=== PATIENT | male | born 1930 | race Caucasian/White ===

== ENCOUNTER 2016-06-15 08:15 | Inpatient (IN) | payer MEDICARE, BC ==
[2016-06-15] MEDS ORDERED: NS 0.9% 1000 ML* 1,000 ML IV ONE (08:20)
[2016-06-15 08:46] LABS: Hematocrit 22 % (42-52); Hemoglobin 6.7 g/dl (14.0-18.0); Mean Corpuscular HGB Conc 30 g/dl (31-36); Mean Corpuscular Hemoglobin 22 pg (27-31); Mean Corpuscular Volume 73 fL (80-94); Mean Platelet Volume 6 um3 (7.4-10.4); Red Blood Count 3.07 10^6/ul (4.0-5.4); Red Cell Distribution Width 18 % (10.5-15); White Blood Count 15.3 10^3/ul (3.5-10.8)
[2016-06-15 08:47] LABS: Add Diff/Slide Review? Slide Review Added; Comments Flag Yes
[2016-06-15 08:53] LABS: Albumin 2.6 g/dL (3.2-5.2); BUN/Creatinine Ratio 61.4 (8-20); EGFR African American 105.4 (>60); EGFR Non-African American 81.9 (>60); Globulin 2.7 g/dL (2-4); Potassium 4.3 mmol/L (3.5-5.0); Total Bilirubin 0.3 mg/dL (0.2-1.0); Total Protein 5.3 g/dL (6.4-8.9)
[2016-06-15] MEDS ORDERED: Pantoprazole IV* 40 MG IV ONE (09:12)
[2016-06-15] MEDS ORDERED: NS 0.9% 1000 ML* 1,000 ML IV SCH ×2 (09:15→10:54)
[2016-06-15 09:16] LABS: Basophilic Stippling 1+; Hypochromasia 2+; Immature Granulocytes 4 % (0-9); Metamyelocytes % 2 % (0-2); Microcytosis 2+; Neutrophil % 90 % (38-83); Polychromasia 1+
[2016-06-15 09:17] LABS: Target Cells 1+
--- NOTE | 2016-06-15 09:44 | ED ---
Hilary Leija Michael, scribed for Korina Minor MD on 06/15/16 at 0900 . GI/ HPI - HPI Summary HPI Summary: 85 y/o male was BIBA to the ED presenting with intermittent episodes of loose black tarry stool every hour for the last 24 hours. The pt reports that nothing aggravates or alleviates his symptoms. He denies abd pain. The PMHx is significant for GI bleeds and HTN. His last GI bleed was 1.5 years ago. The pt takes Ferrous Sulfate and ASA 81mg. - History of Current Complaint Chief Complaint: EDGIBleed Time Seen by Provider: 06/15/16 08:18 Stated Complaint: BLACK STOOL Hx Obtained From: Patient, EMS, Medical Records Onset/Duration: Started Days Ago, Still Present Timing: Intermittent Severity: Moderate Current Severity: Moderate Pain Intensity: 0 Associated Signs and Symptoms: Positive: Black Tarry Stool. Negative: Abdominal Pain Aggravating Factor(s): Nothing Alleviating Factor(s): Nothing - Additional Pertinent History Primary Care Physician: [id number] - Allergy/Home Medications Allergies/Adverse Reactions: Allergies Allergy/AdvReac Type Severity Reaction Status Date / Time No Known Allergies Allergy Verified 10/29/13 10:29 Home Medications: Home Medications Aspirin [Aspirin 81 MG TAB] 81 mg PO DAILY 06/15/16 [History Confirmed 06/15/16] Calcium Carbonate-Vitamin D [Calcium 500 + D 500-125 mg-Unit] 500 mg PO DAILY [History Confirmed 06/15/16] Chlorthalidone TAB* [Hygroton TAB*] 50 mg PO DAILY 06/15/16 [History Confirmed 06/15/16] Ferrous Sulfate TAB* 325 mg PO DAILY 06/15/16 [History Confirmed 06/15/16] PMH/Surg Hx/FS Hx/Imm Hx Endocrine/Hematology History: Denies: Hx Diabetes, Hx Thyroid Disease Cardiovascular History: Reports: Hx Hypercholesterolemia, Hx Hypertension Denies: Hx Congestive Heart Failure GI History: Reports: Other GI Disorders - asa induced ulcer approx 30 yrs ago History: Reports: Other Problems/Disorders - Prostate cancer Musculoskeletal History: Reports: Other Musculoskeletal History - osteo arthritis, 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 Sensory History: Reports: Hx Contacts or Glasses Opthamlomology History: Reports: Hx Contacts or Glasses - Cancer History Cancer Type, Location and Year: prostate'96 Hx Chemotherapy: Yes - Surgical History Surgery Procedure, Year, and Place: prostatectomy, Hx Anesthesia Reactions: No Infectious Disease History: No Infectious Disease History: Denies: Traveled Outside the [place] in Last 30 Days - Family History Known Family History: Negative: Blood Disorder - Social History Occupation: Retired Lives: With Family Alcohol Use: None Substance Use Type: Reports: None Smoking Status (MU): Never Smoked Tobacco Review of Systems Negative: Fever Positive: Other - black tarry stool. Negative: Abdominal Pain All Other Systems Reviewed And Are Negative: Yes Physical Exam Triage Information Reviewed: Yes Vital Signs On Initial Exam: Initial Vitals Temp Pulse Resp BP Pulse Ox 97.4 F 88 16 100/45 100 06/15/16 08:17 06/15/16 08:17 06/15/16 08:17 06/15/16 08:17 06/15/16 08:17 Vital Signs Reviewed: Yes Appearance: Positive: Well-Appearing, No Pain Distress Skin: Positive: Warm, Dry, Pale Eyes: Positive: EOMI, SARWAT ENT: Positive: Pharynx normal, TMs normal Neck: Positive: Supple, Nontender Respiratory/Lung Sounds: Positive: Clear to Auscultation, Breath Sounds Present. Negative: Rales, Rhonchi, Wheezes Cardiovascular: Positive: RRR, Other - no gallops. Negative: Murmur, Rub Abdomen Description: Positive: Nontender - no abd pain, Soft, Other: - no rebound. Negative: Guarding Bowel Sounds: Positive: Present Musculoskeletal: Positive: Strength/ROM Intact. Negative: Edema Left, Edema Right Neurological: Positive: Sensory/Motor Intact, Alert, Oriented to Person Place, Time, CN Intact II-III Psychiatric: Positive: Affect/Mood Appropriate - Kia Coma Scale Coma Scale Total: 15 Diagnostics - Vital Signs Vital Signs Temp Pulse Resp BP Pulse Ox 06/15/16 08: 97.4 F 88 16 100/45 100 - Laboratory Lab Results: Lab Results 06/15/16 06/15/16 06/15/16 Range/Units 08:32 08:32 08:32 WBC 15.3 H (3.5-10.8) 10^3/ul RBC 3.07 L (4.0-5.4) 10^6/ul Hgb 6.7 L (14.0-18.0) g/dl Hct 22 L (42-52) % MCV 73 L (80-94) fL MCH 22 L (27-31) pg MCHC 30 L (31-36) g/dl RDW 18 H (10.5-15) % Plt Count 592 H (150-450) 10^3/ul MPV 6 L (7.4-10.4) um3 Immature Gran % (Auto) 4 (0-9) % Neut % (Auto) 86.0 H (38-83) % Lymph % (Auto) 5.5 L (25-47) % [place] % (Auto) 6.8 (1-9) % Eos % (Auto) 0.7 (0-6) % Baso % (Auto) 1.0 (0-2) % Absolute Neuts (auto) 13.1 H (1.5-7.7) 10^3/ul Absolute Lymphs (auto) 0.8 L (1.0-4.8) 10^3/ul Absolute Monos (auto) 1.0 H (0-0.8) 10^3/ul Absolute Eos (auto) 0.1 (0-0.6) 10^3/ul Absolute Basos (auto) 0.2 (0-0.2) 10^3/ul Absolute Nucleated RBC 0.01 10^3/ul Neutrophils % 90 H (38-83) % Band Neutrophils % 2 (0-8) % Lymphocytes % 5 L (25-47) % Monocytes % 1 (0-13) % Metamyelocytes % 2 (0-2) % Nucleated RBC % 0 Normal RBC Morphology Not Reportable Polychromasia 1+ Hypochromasia 2+ Basophilic Stippling 1+ Microcytosis 2+ Target Cells 1+ Elliptocytes 1+ INR (Anticoag Therapy) 1.16 H (0.89-1.11) APTT 27.0 (26.0-36.3) seconds Sodium 136 (133-145) mmol/L Potassium 4.3 (3.5-5.0) mmol/L Chloride 106 (101-111) mmol/L Carbon Dioxide 21 L (22-32) mmol/L Anion Gap 9 (2-11) mmol/L BUN 54 H (6-24) mg/dL Creatinine 0.88 (0.67-1.17) mg/dL Est GFR ( Amer) 105.4 (>60) Est GFR (Non-Af Amer) 81.9 (>60) BUN/Creatinine Ratio 61.4 H (8-20) Glucose 159 H (70-100) mg/dL Calcium 8.0 L (8.6-10.3) mg/dL Total Bilirubin 0.30 (0.2-1.0) mg/dL AST 27 (13-39) U/L ALT 6 L (7-52) U/L Alkaline Phosphatase 306 H (34-104) U/L Total Protein 5.3 L (6.4-8.9) g/dL Albumin 2.6 L (3.2-5.2) g/dL Globulin 2.7 (2-4) g/dL Albumin/Globulin Ratio 1.0 (1-3) Blood Type Antibody Screen Crossmatch 06/15/16 Range/Units 08:32 WBC (3.5-10.8) 10^3/ul RBC (4.0-5.4) 10^6/ul Hgb (14.0-18.0) g/dl Hct (42-52) % MCV (80-94) fL MCH (27-31) pg MCHC (31-36) g/dl RDW (10.5-15) % Plt Count (150-450) 10^3/ul MPV (7.4-10.4) um3 Immature Gran % (Auto) (0-9) % Neut % (Auto) (38-83) % Lymph % (Auto) (25-47) % Blair % (Auto) (1-9) % Eos % (Auto) (0-6) % Baso % (Auto) (0-2) % Absolute Neuts (auto) (1.5-7.7) 10^3/ul Absolute Lymphs (auto) (1.0-4.8) 10^3/ul Absolute Monos (auto) (0-0.8) 10^3/ul Absolute Eos (auto) (0-0.6) 10^3/ul Absolute Basos (auto) (0-0.2) 10^3/ul Absolute Nucleated RBC 10^3/ul Neutrophils % (38-83) % Band Neutrophils % (0-8) % Lymphocytes % (25-47) % Monocytes % (0-13) % Metamyelocytes % (0-2) % Nucleated RBC % Normal RBC Morphology Polychromasia Hypochromasia Basophilic Stippling Microcytosis Target Cells Elliptocytes INR (Anticoag Therapy) (0.89-1.11) APTT (26.0-36.3) seconds Sodium (133-145) mmol/L Potassium (3.5-5.0) mmol/L Chloride (101-111) mmol/L Carbon Dioxide (22-32) mmol/L Anion Gap (2-11) mmol/L BUN (6-24) mg/dL Creatinine (0.67-1.17) mg/dL Est GFR ( Amer) (>60) Est GFR (Non-Af Amer) (>60) BUN/Creatinine Ratio (8-20) Glucose (70-100) mg/dL Calcium (8.6-10.3) mg/dL Total Bilirubin (0.2-1.0) mg/dL AST (13-39) U/L ALT (7-52) U/L Alkaline Phosphatase (34-104) U/L Total Protein (6.4-8.9) g/dL Albumin (3.2-5.2) g/dL Globulin (2-4) g/dL Albumin/Globulin Ratio (1-3) Blood Type B Positive Antibody Screen Negative Crossmatch See Detail Result Diagrams: 06/15/16 08:32 06/15/16 08:32 Lab Statement: Any lab studies that have been ordered have been reviewed, and results considered in the medical decision making process. GIGU Course/Dx - Course Course Of Treatment: Consulted Dr. Panda (Hospitalist) at 0910-pt will be admitted to [facility] Consulted Dr. Ortega (GI) at 0915-discussed treatment plan with transfusion and protonix. - Diagnoses Provider Diagnoses: Upper GI bleed Discharge - Discharge Plan Condition: Stable Disposition: ADMITTED TO [facility] Discharge Disposition Comment: pt is accepted by Dr. Panda Referrals: Parker Baxter MD [Primary Care Provider] - The documentation as recorded by the Hilary dewitt Michael accurately reflects the service I personally performed and the decisions made by me, Korina Minor MD.
[2016-06-15] MEDS ORDERED: Pantoprazole IV* 80 MG in NS 0.9% 250 ML* 250 ML IVPB SCH (10:00)
[2016-06-15] MEDS ORDERED: Midazolam* 1 MG/ML 10 ML VIAL (10 MG) ONE ×2 (10:51→10:52)
[2016-06-15] MEDS ORDERED: fentaNYL* 50 MCG/ML 2 ML VIAL (100 MCG VIAL) ONE (10:52)
[2016-06-15] MEDS ORDERED: Ondansetron INJ* 2 MG/ML VIAL IV PRN (10:52)
--- NOTE | 2016-06-15 12:21 | HP ---
HISTORY AND PHYSICAL: DATE OF ADMISSION: 06/15/16 PRIMARY CARE PROVIDER: Dr. Baxter. ATTENDING PHYSICIAN WHILE IN THE HOSPITAL: Breonna Godwin MD * (report dictated by Hesham Watts NP). CHIEF COMPLAINT: Tarry stools. HISTORY OF PRESENT ILLNESS: Mr. San is an 85-year-old male patient. He carries a history of hypertension, history of GI bleed x2 in the past related to aspirin and prednisone, history of prostate cancer, hyperlipidemia and peptic ulcer disease. He comes into the ER today stating that over the last 6 weeks he has been taking NSAIDs about 2 times a day on a daily basis and he noticed he takes iron as well and he normally has dark stools but what changed last night is he was having dark tarry stools about every hour which was new for him and he was feeling weak and tired. He knew that these might be the signs of a GI bleed and he came into the hospital. He denied having any chest pain or shortness of breath. Denied having any syncopal episodes. He denies any recent fevers or chills and he denies having any abdominal discomfort. He says that his noted that he was becoming more pale and he noticed that he was just feeling much more weak. He came into the ER and it was noted that his hemoglobin was 6.7. He is actually surprisingly heme negative, but because of his history and the story, we were asked to evaluate for admission for obvious GI bleed and the patient was evaluated and is being admitted to the ICU for endoscopy. PAST MEDICAL HISTORY: Significant for: 1. Hypertension. 2. Hyperlipidemia. 3. Prostate cancer. 4. GI bleed x2. 5. Peptic ulcer disease. PAST SURGICAL HISTORY: He denied family history, was reviewed and essentially noncontributory. He said that there is no history of GI disease in the family. HOME MEDICATIONS: According to the list that was provided include: 1. Calcium with vitamin D 500 mg daily. 2. Ferrous sulfate 325 mg p.o. daily. 3. Chlorthalidone 50 mg daily. 4. Aspirin 81 mg daily. 5. Advil 240 mg every 6 hours as needed b.i.d. ALLERGIES TO MEDICATIONS: No known drug allergies. SOCIAL HISTORY: He does not smoke. He does not drink. He lives with his . Surrogate decision maker is his son, Eb. REVIEW OF SYSTEMS: There is no documented fever. He denied having any significant weight change. There was no double vision. He denies having any ear discharge. There is no rhinorrhea. There is no sore throat. No thyroid enlargement. Denies having any chest pain. There is no orthopnea. There is no nocturnal dyspnea. There is no abdominal pain. There is no nausea, no vomiting. No dysuria, no frequency. No seizure, no loss of consciousness. No pruritus and no skin ulcerations. Review of 14 systems completed and all others negative. PHYSICAL EXAMINATION GENERAL: At this time, Mr. San is an 85-year-old male patient. He is sitting in the ICU bed. He does not appear to be in any acute distress. VITAL SIGNS: Blood pressure initially 95/44, pulse 89, respirations 16, O2 sat 93%, temperature 97.7. HEENT: Head: Atraumatic, normocephalic. Eyes: EOMs intact. Sclerae anicteric. His sclerae does appear to be pale. Throat: Oral mucosa appears to be moist. No oropharyngeal erythema. NECK: Supple. LUNGS: Clear to auscultation bilaterally. No wheezes, rales or rhonchi. HEART: Sounds S1, S2. Regular rate and rhythm. No murmurs, rubs or gallops. ABDOMEN: Soft, flat, nontender. Bowel sounds present. EXTREMITIES: Pulses 2+ throughout. He is able to move all 4 extremities with 5 /5 strength. NEUROLOGIC: The patient is awake, alert, oriented x3. Tongue midline. Budget Director were equal. No gross focal deficits. SKIN: Intact. DIAGNOSTIC STUDIES/LABORATORY DATA: Today revealed WBC of 15.3, RBC of 3.07, hemoglobin 6.7, hematocrit of 22, his platelets were 592. His INR 1.16, PTT 27. Sodium 136, potassium 4.3, chloride of 106, bicarb 21, BUN 54, creatinine of 0.88, glucose of 159, calcium 8.0, total bilirubin 0.3, AST 27, ALT 6, albumin of 2.6. He did have a Hemoccult test obtained which was negative. Old medical records were reviewed. ASSESSMENT AND PLAN: Mr. San is an 85-year-old male patient coming into the ER today with complaints of tarry stools overnight and weakness, on evaluation was found to have a significant drop in his H and H. Hospitalist service was asked to evaluate for admission. He will be admitted under inpatient status for : 1. Presumed upper gastrointestinal bleed. At this point, his BUN is up. I know the Hemoccult was negative but certainly with his history one must consider peptic ulcer disease again and a bleeding ulcer. The plan at this point is to give him 2 units of blood, nothing by mouth. Dr. Diallo has been consulted and will be evaluating the patient today for an upper endoscopy. He is hypotensive in the 90s but he says he is feeling better and he is currently asymptomatic. He says he does not feel as weak anymore. I think we will continue with fluids and 2 units of blood. We will check his H and H an hour after the blood and transfuse as needed and continue the PPI drip and stop the offending agents. 2. Hypertension. We will hold the chlorthalidone in the acute illness. 3. Hyperlipidemia. He can follow with Dr. Baxter. He says he does not take any medications for this currently. 4. Prostate cancer. Follow with primary. 5. Peptic ulcer disease. Most likely he is going to be admitted on a PPI. 6. Leukocytosis. Etiology unclear. He has not had any infectious type symptoms. At this point, I will just trend this. It is probably a stress reaction to the gastrointestinal bleed. I will send off cultures. If there is any fevers or obvious source of infection, we will treat. 7. DVT prophylaxis. He will be placed on SCDs only because of the active bleed. 8. Code status. He wishes to be do not resuscitate. 9. Fluids, electrolytes, nutrition. He is n.p.o. Hopefully, after the scope we can start him on clears but I will wait for recommendations from Dr. Diallo. TIME SPENT: On the admission 60 minutes, greater than half the time spent face- to- face with the patient, obtaining my history and physical; the other half of the time spent going over the plan of care with the patient and implementing plan of care. I did discuss the plan of care with my attending, Dr. Godwin; she is in agreement. HESHAM WATTS NP CC: Dr. Baxter; Dr. Diallo * [id number]/[facility] #: [id number] [facility]
--- NOTE | 2016-06-15 13:03 | PRO ---
DATE OF PROCEDURE: 06/15/16 - ROOM #452 PROCEDURE: Gastroscopy with CLOtest biopsy from the gastric antrum. MEDICINES: Versed 3 mg IV, Fentanyl 25 mcg IV. 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 He has been taking NSAIDs pretty regularly for the last several weeks. He had noticed black frequent stools overnight and presented with anemia. He was hemodynamically stable. He does have a prior history of bleeding and was actually admitted to the hospital about 2 years ago with a duodenal ulcer bleed, presumably from prednisone therapy. Semi-urgent upper endoscopy is therefore being carried out. PROCEDURE IN DETAIL: After the procedure was discussed with the patient, risks and benefits were outlined, written consent was obtained, the patient was placed in the left lateral decubitus position and conscious sedation was administered. A video diagnostic gastroscope was inserted orally and passed very carefully into the esophagus. The esophagus, stomach, and duodenum through the second to third portion were well visualized. The patient tolerated the procedure well and there were no immediate complications. FINDINGS: The esophagus was normal. There was no evidence of erosive change. The stomach was entered. There was no blood in the stomach. The cardia, fundus , body and antrum of the stomach were unremarkable without any ulceration or inflammatory change. The pylorus was normal and patent. However, entering the duodenal bulb, an approximately 1 cm duodenal bulb ulcer was seen. It had a white base, was not actively bleeding, had a small hemostatic red spot in the center, but no protruding vessel. The second to third portion of the duodenum was normal with a normal folding pattern. The gastroscope was then brought back out into the stomach and a gastric antral biopsy for CLOtest was obtained. CONCLUSION: Duodenal ulcer as described above. No evidence of active bleeding or visible vessel. RECOMMENDATIONS: The patient should remain on PPI therapy. He will start a clear liquid diet. The lesion itself has a relatively low risk of re-bleeding. He is instructed to avoid NSAIDS in the future. CC: Parker Baxter MD * [id number]/[facility] #: [id number] [facility]
[2016-06-15 14:12] LABS: Hematocrit 24 % (42-52); Hemoglobin 7.3 g/dl (14.0-18.0)
[2016-06-15 14:13] LABS: Comments Flag Yes
[2016-06-15] MEDS: Pantoprazole IV* 80 MG in NS 0.9% 250 ML* 250 ML IVPB SCH ×2 (14:13→21:45)
[2016-06-15 14:43] LABS: Urine Bilirubin Negative (Negative); Urine Glucose Negative (Negative); Urine Nitrite Negative (Negative)
[2016-06-15] MEDS: Acetaminophen TAB* 325 MG PO PRN (19:29)
[2016-06-15 20:36] LABS: Hematocrit 24 % (42-52); Hemoglobin 7.7 g/dl (14.0-18.0)
[2016-06-16] MEDS: Acetaminophen TAB* 325 MG PO PRN ×4 (01:44→20:38)
[2016-06-16 03:24] LABS: Hematocrit 21 % (42-52)
[2016-06-16 03:25] LABS: Comments Flag Yes
[2016-06-16 03:26] LABS: Hemoglobin 6.6 g/dl (14.0-18.0)
[2016-06-16 04:49] LABS: Hematocrit 22 % (42-52); Hemoglobin 7.1 g/dl (14.0-18.0)
[2016-06-16 06:48] LABS: Hematocrit 23 % (42-52); Hemoglobin 7.1 g/dl (14.0-18.0); Mean Corpuscular HGB Conc 32 g/dl (31-36); Mean Corpuscular Hemoglobin 24 pg (27-31); Mean Corpuscular Volume 76 fL (80-94); Mean Platelet Volume 6 um3 (7.4-10.4); Red Blood Count 2.98 10^6/ul (4.0-5.4); Red Cell Distribution Width 19 % (10.5-15); White Blood Count 14.6 10^3/ul (3.5-10.8)
[2016-06-16 07:02] LABS: BUN/Creatinine Ratio 50.6 (8-20); Calcium 7.4 mg/dL (8.6-10.3); EGFR African American 115.9 (>60); EGFR Non-African American 90.1 (>60); Potassium 3.7 mmol/L (3.5-5.0)
[2016-06-16] MEDS: Pantoprazole IV* 80 MG in NS 0.9% 250 ML* 250 ML IVPB SCH ×2 (08:03→17:56)
[2016-06-16 12:28] LABS: Hematocrit 22 % (42-52); Hemoglobin 7.1 g/dl (14.0-18.0)
--- NOTE | 2016-06-16 16:41 | PN ---
Subjective Date of Service: 06/16/16 Interval History: Seen and examined No additional BMs since admission Tolerating clear liquids well No pain No LH, SOB, CP, N/V Objective Active Medications: Acetaminophen (Tylenol Tab*) 650 mg PO Q4H PRN PRN Reason: FEVER/PAIN Last Admin: 06/16/16 16:30 Dose: 650 mg Pantoprazole Sodium 80 mg/ (Sodium Chloride) 250 mls @ 25 mls/hr IVPB Q10H [facility] Last Admin: 06/16/16 08:03 Dose: 25 mls/hr Sodium Chloride (Ns 0.9% 1000 Ml*) 1,000 mls @ 100 mls/hr IV PER RATE [facility] Last Admin: 06/15/16 16:43 Dose: 100 mls/hr Ondansetron HCl (Zofran Inj*) 4 mg IV Q6H PRN PRN Reason: NAUSEA Vital Signs 06/15/16 06/15/16 06/16/16 19:56 20:00 00:32 Temperature 99.8 F 98.9 F Pulse Rate 91 78 Respiratory 18 18 20 Rate Blood Pressure 102/45 94/37 (mmHg) O2 Sat by Pulse 99 97 Oximetry 06/16/16 06/16/16 06/16/16 04:08 07:10 07:40 Temperature 98.6 F Pulse Rate 78 Respiratory 16 20 Rate Blood Pressure 97/47 (mmHg) O2 Sat by Pulse 97 99 98 Oximetry 06/16/16 06/16/16 06/16/16 08:02 11:39 12:03 Temperature 99.0 F 98.4 F Pulse Rate 78 71 Respiratory 20 20 Rate Blood Pressure 96/43 97/40 (mmHg) O2 Sat by Pulse 99 99 98 Oximetry 06/16/16 06/16/16 16:07 16:26 Temperature 100.4 F 100.6 F Pulse Rate 83 Respiratory 16 Rate Blood Pressure 108/45 (mmHg) O2 Sat by Pulse 99 Oximetry Oxygen Devices in Use Now: None Appearance: NAD Eyes: No Scleral Icterus, PERRLA Ears/Nose/Mouth/Throat: NL Teeth, Lips, Gums, Mucous Membranes Moist Neck: NL Appearance and Movements; NL JVP, Trachea Midline Respiratory: Symmetrical Chest Expansion and Respiratory Effort, Clear to Auscultation Cardiovascular: RRR Abdominal: NL Sounds; No Tenderness; No Distention, No Hepatosplenomegaly Lymphatic: No Cervical Adenopathy Extremities: No Edema Skin: No Rash or Ulcers Neurological: Alert and Oriented x 3 Result Diagrams: 06/16/16 12:15 06/16/16 06:42 Additional Lab and Data: Lab Results 06/15/16 06/15/16 06/15/16 Range/Units 08:32 08:32 08:32 WBC 15.3 H (3.5-10.8) 10^3/ul RBC 3.07 L (4.0-5.4) 10^6/ul Hgb 6.7 L (14.0-18.0) g/dl Hct 22 L (42-52) % MCV 73 L (80-94) fL MCH 22 L (27-31) pg MCHC 30 L (31-36) g/dl RDW 18 H (10.5-15) % Plt Count 592 H (150-450) 10^3/ul MPV 6 L (7.4-10.4) um3 Immature Gran % (Auto) 4 (0-9) % Neut % (Auto) 86.0 H (38-83) % Lymph % (Auto) 5.5 L (25-47) % [place] % (Auto) 6.8 (1-9) % Eos % (Auto) 0.7 (0-6) % Baso % (Auto) 1.0 (0-2) % Absolute Neuts (auto) 13.1 H (1.5-7.7) 10^3/ul Absolute Lymphs (auto) 0.8 L (1.0-4.8) 10^3/ul Absolute Monos (auto) 1.0 H (0-0.8) 10^3/ul Absolute Eos (auto) 0.1 (0-0.6) 10^3/ul Absolute Basos (auto) 0.2 (0-0.2) 10^3/ul Absolute Nucleated RBC 0.01 10^3/ul Neutrophils % 90 H (38-83) % Band Neutrophils % 2 (0-8) % Lymphocytes % 5 L (25-47) % Monocytes % 1 (0-13) % Metamyelocytes % 2 (0-2) % Nucleated RBC % 0 Normal RBC Morphology Not Reportable Polychromasia 1+ Hypochromasia 2+ Basophilic Stippling 1+ Microcytosis 2+ Target Cells 1+ Elliptocytes 1+ INR (Anticoag Therapy) 1.16 H (0.89-1.11) APTT 27.0 (26.0-36.3) seconds Sodium 136 (133-145) mmol/L Potassium 4.3 (3.5-5.0) mmol/L Chloride 106 (101-111) mmol/L Carbon Dioxide 21 L (22-32) mmol/L Anion Gap 9 (2-11) mmol/L BUN 54 H (6-24) mg/dL Creatinine 0.88 (0.67-1.17) mg/dL Est GFR ( Amer) 105.4 (>60) Est GFR (Non-Af Amer) 81.9 (>60) BUN/Creatinine Ratio 61.4 H (8-20) Glucose 159 H (70-100) mg/dL Calcium 8.0 L (8.6-10.3) mg/dL Total Bilirubin 0.30 (0.2-1.0) mg/dL AST 27 (13-39) U/L ALT 6 L (7-52) U/L Alkaline Phosphatase 306 H (34-104) U/L Total Protein 5.3 L (6.4-8.9) g/dL Albumin 2.6 L (3.2-5.2) g/dL Globulin 2.7 (2-4) g/dL Albumin/Globulin Ratio 1.0 (1-3) Blood Type Antibody Screen Crossmatch 06/15/16 Range/Units 08:32 WBC (3.5-10.8) 10^3/ul RBC (4.0-5.4) 10^6/ul Hgb (14.0-18.0) g/dl Hct (42-52) % MCV (80-94) fL MCH (27-31) pg MCHC (31-36) g/dl RDW (10.5-15) % Plt Count (150-450) 10^3/ul MPV (7.4-10.4) um3 Immature Gran % (Auto) (0-9) % Neut % (Auto) (38-83) % Lymph % (Auto) (25-47) % [place] % (Auto) (1-9) % Eos % (Auto) (0-6) % Baso % (Auto) (0-2) % Absolute Neuts (auto) (1.5-7.7) 10^3/ul Absolute Lymphs (auto) (1.0-4.8) 10^3/ul Absolute Monos (auto) (0-0.8) 10^3/ul Absolute Eos (auto) (0-0.6) 10^3/ul Absolute Basos (auto) (0-0.2) 10^3/ul Absolute Nucleated RBC 10^3/ul Neutrophils % (38-83) % Band Neutrophils % (0-8) % Lymphocytes % (25-47) % Monocytes % (0-13) % Metamyelocytes % (0-2) % Nucleated RBC % Normal RBC Morphology Polychromasia Hypochromasia Basophilic Stippling Microcytosis Target Cells Elliptocytes INR (Anticoag Therapy) (0.89-1.11) APTT (26.0-36.3) seconds Sodium (133-145) mmol/L Potassium (3.5-5.0) mmol/L Chloride (101-111) mmol/L Carbon Dioxide (22-32) mmol/L Anion Gap (2-11) mmol/L BUN (6-24) mg/dL Creatinine (0.67-1.17) mg/dL Est GFR ( Amer) (>60) Est GFR (Non-Af Amer) (>60) BUN/Creatinine Ratio (8-20) Glucose (70-100) mg/dL Calcium (8.6-10.3) mg/dL Total Bilirubin (0.2-1.0) mg/dL AST (13-39) U/L ALT (7-52) U/L Alkaline Phosphatase (34-104) U/L Total Protein (6.4-8.9) g/dL Albumin (3.2-5.2) g/dL Globulin (2-4) g/dL Albumin/Globulin Ratio (1-3) Blood Type B Positive Antibody Screen Negative Crossmatch See Detail Microbiology and Other Data: Microbiology 06/15/16 14:25 Aerobic Blood Culture - Preliminary Blood Venous No Growth Day 1 Anaerobic Blood Culture - Preliminary No Growth Day 1 06/15/16 14:05 Aerobic Blood Culture - Preliminary Blood Venous No Growth Day 1 Anaerobic Blood Culture - Preliminary No Growth Day 1 06/15/16 14:35 Urine Culture - Final Urine No Growth (<1,000 CFU/mL) 06/15/16 11:27 CLOtest - Final Gastric Antrum Assess/Plan/Problems-Billing Assessment: 85 yo M p/w GO hemorrhage from duodenal ulcer in setting of NSAID use - Patient Problems (1) Acute blood loss anemia Comment: Transfuse for H/H <7 Repeat H/H 2200 (2) Duodenal ulcer Comment: IV PPI recurrent - also seen 2015 discharge on oral developed in setting of NSAID use (3) HTN (hypertension) Comment: Holding chlorthalidone (4) DVT prophylaxis Comment: SCDs in setting of GIB
[2016-06-16] MEDS: Ferrous Sulfate TAB* 325 MG PO SCH (20:38)
[2016-06-16 23:01] LABS: Hematocrit 21 % (42-52)
[2016-06-16 23:02] LABS: Comments Flag Yes; Hemoglobin 6.6 g/dl (14.0-18.0)
[2016-06-17] MEDS ORDERED: traMADol TAB* 50 MG PO PRN (03:15)
[2016-06-17] MEDS: Acetaminophen TAB* 325 MG PO PRN ×2 (07:31→23:16)
[2016-06-17] MEDS: Ferrous Sulfate TAB* 325 MG PO SCH ×3 (07:31→21:06)
[2016-06-17] MEDS: Pantoprazole IV* 80 MG in NS 0.9% 250 ML* 250 ML IVPB SCH ×4 (07:46→21:06)
[2016-06-17 10:04] LABS: Hematocrit 24 % (42-52); Hemoglobin 7.8 g/dl (14.0-18.0); Mean Corpuscular HGB Conc 32 g/dl (31-36); Mean Corpuscular Hemoglobin 25 pg (27-31); Mean Corpuscular Volume 77 fL (80-94); Mean Platelet Volume 7 um3 (7.4-10.4); Red Blood Count 3.16 10^6/ul (4.0-5.4); Red Cell Distribution Width 20 % (10.5-15); White Blood Count 14.9 10^3/ul (3.5-10.8)
--- NOTE | 2016-06-17 19:22 | PN ---
Subjective Date of Service: 06/17/16 Interval History: Pt has no complaints, no recent BM's Objective Active Medications: Acetaminophen (Tylenol Tab*) 650 mg PO Q4H PRN PRN Reason: FEVER/PAIN Last Admin: 06/17/16 07:31 Dose: 650 mg Ferrous Sulfate (Ferrous Sulfate Tab*) 325 mg PO TID [facility] Last Admin: 06/17/16 14:09 Dose: 325 mg Pantoprazole Sodium 80 mg/ (Sodium Chloride) 250 mls @ 25 mls/hr IVPB Q10H [facility] Last Admin: 06/17/16 08:36 Dose: 25 mls/hr Ondansetron HCl (Zofran Inj*) 4 mg IV Q6H PRN PRN Reason: NAUSEA Tramadol HCl (Ultram*) 50 mg PO Q12H PRN PRN Reason: PAIN Last Admin: 06/17/16 04:57 Dose: 50 mg Vital Signs 06/16/16 06/16/16 06/16/16 19:45 20:00 22:00 Temperature 99.3 F 98.3 F Pulse Rate 83 78 Respiratory 16 16 22 Rate Blood Pressure 105/49 88/41 (mmHg) O2 Sat by Pulse 96 100 Oximetry 06/16/16 06/17/16 06/17/16 23:55 00:30 01:00 Temperature 97.7 F 97.9 F 97.4 F Pulse Rate 76 79 Respiratory 16 24 24 Rate Blood Pressure 92/39 81/29 95/31 (mmHg) O2 Sat by Pulse 96 97 Oximetry 06/17/16 06/17/16 06/17/16 04:43 04:57 06:57 Temperature 97.9 F Pulse Rate 81 Respiratory 26 20 14 Rate Blood Pressure 101/42 (mmHg) O2 Sat by Pulse 95 Oximetry 06/17/16 06/17/16 06/17/16 07:17 08:00 08:16 Temperature 100.5 F 100.1 F Pulse Rate 82 Respiratory 18 22 Rate Blood Pressure 95/45 (mmHg) O2 Sat by Pulse 95 Oximetry 06/17/16 06/17/16 06/17/16 09:56 10:33 11:13 Temperature 97.8 F 98.3 F Pulse Rate 75 Respiratory 18 Rate Blood Pressure 97/45 (mmHg) O2 Sat by Pulse 97 99 Oximetry 06/17/16 06/17/16 06/17/16 11:41 12:15 15:47 Temperature 98.3 F Pulse Rate 77 85 88 Respiratory 24 16 Rate Blood Pressure 78/42 125/24 110/44 (mmHg) O2 Sat by Pulse 100 100 Oximetry 06/17/16 06/17/16 16:26 17:40 Temperature 100.0 F Pulse Rate 86 Respiratory 23 Rate Blood Pressure 110/51 (mmHg) O2 Sat by Pulse 99 97 Oximetry Oxygen Devices in Use Now: None Appearance: 85 yo M in nAd, aAOx3 Eyes: No Scleral Icterus, PERRLA Ears/Nose/Mouth/Throat: NL Teeth, Lips, Gums, Mucous Membranes Moist Neck: NL Appearance and Movements; NL JVP, Trachea Midline Respiratory: Symmetrical Chest Expansion and Respiratory Effort, Clear to Auscultation Cardiovascular: NL Sounds; No Murmurs; No JVD, RRR Abdominal: NL Sounds; No Tenderness; No Distention Lymphatic: No Cervical Adenopathy Extremities: No Edema, No Clubbing, Cyanosis Skin: No Rash or Ulcers, No Nodules or Sclerosis Neurological: Alert and Oriented x 3, NL Muscle Strength and Tone Result Diagrams: 06/17/16 09:43 06/16/16 06:42 Additional Lab and Data: Lab Results 06/15/16 06/15/16 06/15/16 Range/Units 08:32 08:32 08:32 WBC 15.3 H (3.5-10.8) 10^3/ul RBC 3.07 L (4.0-5.4) 10^6/ul Hgb 6.7 L (14.0-18.0) g/dl Hct 22 L (42-52) % MCV 73 L (80-94) fL MCH 22 L (27-31) pg MCHC 30 L (31-36) g/dl RDW 18 H (10.5-15) % Plt Count 592 H (150-450) 10^3/ul MPV 6 L (7.4-10.4) um3 Immature Gran % (Auto) 4 (0-9) % Neut % (Auto) 86.0 H (38-83) % Lymph % (Auto) 5.5 L (25-47) % [place] % (Auto) 6.8 (1-9) % Eos % (Auto) 0.7 (0-6) % Baso % (Auto) 1.0 (0-2) % Absolute Neuts (auto) 13.1 H (1.5-7.7) 10^3/ul Absolute Lymphs (auto) 0.8 L (1.0-4.8) 10^3/ul Absolute Monos (auto) 1.0 H (0-0.8) 10^3/ul Absolute Eos (auto) 0.1 (0-0.6) 10^3/ul Absolute Basos (auto) 0.2 (0-0.2) 10^3/ul Absolute Nucleated RBC 0.01 10^3/ul Neutrophils % 90 H (38-83) % Band Neutrophils % 2 (0-8) % Lymphocytes % 5 L (25-47) % Monocytes % 1 (0-13) % Metamyelocytes % 2 (0-2) % Nucleated RBC % 0 Normal RBC Morphology Not Reportable Polychromasia 1+ Hypochromasia 2+ Basophilic Stippling 1+ Microcytosis 2+ Target Cells 1+ Elliptocytes 1+ INR (Anticoag Therapy) 1.16 H (0.89-1.11) APTT 27.0 (26.0-36.3) seconds Sodium 136 (133-145) mmol/L Potassium 4.3 (3.5-5.0) mmol/L Chloride 106 (101-111) mmol/L Carbon Dioxide 21 L (22-32) mmol/L Anion Gap 9 (2-11) mmol/L BUN 54 H (6-24) mg/dL Creatinine 0.88 (0.67-1.17) mg/dL Est GFR ( Amer) 105.4 (>60) Est GFR (Non-Af Amer) 81.9 (>60) BUN/Creatinine Ratio 61.4 H (8-20) Glucose 159 H (70-100) mg/dL Calcium 8.0 L (8.6-10.3) mg/dL Total Bilirubin 0.30 (0.2-1.0) mg/dL AST 27 (13-39) U/L ALT 6 L (7-52) U/L Alkaline Phosphatase 306 H (34-104) U/L Total Protein 5.3 L (6.4-8.9) g/dL Albumin 2.6 L (3.2-5.2) g/dL Globulin 2.7 (2-4) g/dL Albumin/Globulin Ratio 1.0 (1-3) Blood Type Antibody Screen Crossmatch 06/15/16 Range/Units 08:32 WBC (3.5-10.8) 10^3/ul RBC (4.0-5.4) 10^6/ul Hgb (14.0-18.0) g/dl Hct (42-52) % MCV (80-94) fL MCH (27-31) pg MCHC (31-36) g/dl RDW (10.5-15) % Plt Count (150-450) 10^3/ul MPV (7.4-10.4) um3 Immature Gran % (Auto) (0-9) % Neut % (Auto) (38-83) % Lymph % (Auto) (25-47) % [place] % (Auto) (1-9) % Eos % (Auto) (0-6) % Baso % (Auto) (0-2) % Absolute Neuts (auto) (1.5-7.7) 10^3/ul Absolute Lymphs (auto) (1.0-4.8) 10^3/ul Absolute Monos (auto) (0-0.8) 10^3/ul Absolute Eos (auto) (0-0.6) 10^3/ul Absolute Basos (auto) (0-0.2) 10^3/ul Absolute Nucleated RBC 10^3/ul Neutrophils % (38-83) % Band Neutrophils % (0-8) % Lymphocytes % (25-47) % Monocytes % (0-13) % Metamyelocytes % (0-2) % Nucleated RBC % Normal RBC Morphology Polychromasia Hypochromasia Basophilic Stippling Microcytosis Target Cells Elliptocytes INR (Anticoag Therapy) (0.89-1.11) APTT (26.0-36.3) seconds Sodium (133-145) mmol/L Potassium (3.5-5.0) mmol/L Chloride (101-111) mmol/L Carbon Dioxide (22-32) mmol/L Anion Gap (2-11) mmol/L BUN (6-24) mg/dL Creatinine (0.67-1.17) mg/dL Est GFR ( Amer) (>60) Est GFR (Non-Af Amer) (>60) BUN/Creatinine Ratio (8-20) Glucose (70-100) mg/dL Calcium (8.6-10.3) mg/dL Total Bilirubin (0.2-1.0) mg/dL AST (13-39) U/L ALT (7-52) U/L Alkaline Phosphatase (34-104) U/L Total Protein (6.4-8.9) g/dL Albumin (3.2-5.2) g/dL Globulin (2-4) g/dL Albumin/Globulin Ratio (1-3) Blood Type B Positive Antibody Screen Negative Crossmatch See Detail Microbiology and Other Data: Microbiology 06/15/16 14:25 Aerobic Blood Culture - Preliminary Blood Venous No Growth Day 1 Anaerobic Blood Culture - Preliminary No Growth Day 1 06/15/16 14:05 Aerobic Blood Culture - Preliminary Blood Venous No Growth Day 1 Anaerobic Blood Culture - Preliminary No Growth Day 1 06/15/16 14:35 Urine Culture - Final Urine No Growth (<1,000 CFU/mL) 06/15/16 11:27 CLOtest - Final Gastric Antrum Assess/Plan/Problems-Billing Assessment: 85 yo M p/w GO hemorrhage from duodenal ulcer in setting of NSAID use - Patient Problems (1) Acute blood loss anemia Comment: Transfuse 2 U PRBC today, for Hb down to <7, although no signs of acute bleed currently Repeat H/H in AM (2) Duodenal ulcer Comment: IV PPI recurrent - also seen 2015 discharge on oral developed in setting of NSAID use (3) HTN (hypertension) Comment: Holding chlorthalidone controlled (4) DVT prophylaxis Comment: SCDs in setting of GIB Status and Disposition: possible d/c on 06/18/16 if Hb stable
[2016-06-17 22:34] LABS: Hematocrit 29 % (42-52); Hemoglobin 9.1 g/dl (14.0-18.0)
[2016-06-17 22:38] LABS: Comments Flag Yes
[2016-06-18] MEDS: Acetaminophen TAB* 325 MG PO PRN ×3 (05:57→22:14)
[2016-06-18 06:22] LABS: Hematocrit 29 % (42-52); Hemoglobin 9.5 g/dl (14.0-18.0); Mean Corpuscular HGB Conc 33 g/dl (31-36); Mean Corpuscular Hemoglobin 25 pg (27-31); Mean Corpuscular Volume 78 fL (80-94); Mean Platelet Volume 7 um3 (7.4-10.4); Red Blood Count 3.75 10^6/ul (4.0-5.4); Red Cell Distribution Width 20 % (10.5-15); White Blood Count 15.2 10^3/ul (3.5-10.8)
[2016-06-18 06:34] LABS: BUN/Creatinine Ratio 34.5 (8-20); Calcium 7.4 mg/dL (8.6-10.3); EGFR African American 111.2 (>60); EGFR Non-African American 86.4 (>60); Potassium 3.3 mmol/L (3.5-5.0)
[2016-06-18] MEDS ORDERED: Potassium Chlor TAB* 20 MEQ TAB.ER PO ONE (08:42)
[2016-06-18] MEDS: Omeprazole CAP* 20 MG PO SCH ×2 (08:51→21:02)
[2016-06-18] MEDS: Ferrous Sulfate TAB* 325 MG PO SCH ×3 (08:51→21:02)
--- NOTE | 2016-06-18 14:44 | PN ---
Subjective Date of Service: 06/18/16 Interval History: pt feels well, but still too weak to go home. Objective Active Medications: Acetaminophen (Tylenol Tab*) 650 mg PO Q4H PRN PRN Reason: FEVER/PAIN Last Admin: 06/18/16 05:57 Dose: 650 mg Ferrous Sulfate (Ferrous Sulfate Tab*) 325 mg PO TID [facility] Last Admin: 06/18/16 14:22 Dose: 325 mg Omeprazole (Prilosec Cap*) 20 mg PO BID [facility] Last Admin: 06/18/16 08:51 Dose: 20 mg Ondansetron HCl (Zofran Inj*) 4 mg IV Q6H PRN PRN Reason: NAUSEA Tramadol HCl (Ultram*) 50 mg PO Q12H PRN PRN Reason: PAIN Last Admin: 06/17/16 04:57 Dose: 50 mg Vital Signs 06/17/16 06/17/16 06/17/16 15:47 16:26 17:40 Temperature 100.0 F Pulse Rate 88 86 Respiratory 16 23 Rate Blood Pressure 110/44 110/51 (mmHg) O2 Sat by Pulse 100 99 97 Oximetry 06/17/16 06/17/16 06/17/16 19:00 20:00 20:10 Temperature 99.5 F Pulse Rate 87 Respiratory 26 23 Rate Blood Pressure 123/43 (mmHg) O2 Sat by Pulse 98 Oximetry 06/17/16 06/17/16 06/17/16 21:00 22:00 23:00 Temperature Pulse Rate Respiratory 26 20 24 Rate Blood Pressure (mmHg) O2 Sat by Pulse Oximetry 06/18/16 06/18/16 06/18/16 00:00 00:45 01:00 Temperature 98.5 F Pulse Rate 83 Respiratory 26 16 24 Rate Blood Pressure 111/49 (mmHg) O2 Sat by Pulse 94 Oximetry 06/18/16 06/18/16 06/18/16 02:00 03:00 04:00 Temperature Pulse Rate Respiratory 21 21 22 Rate Blood Pressure (mmHg) O2 Sat by Pulse Oximetry 06/18/16 06/18/16 06/18/16 04:12 05:00 06:00 Temperature 98.5 F Pulse Rate 78 Respiratory 20 23 26 Rate Blood Pressure 117/49 (mmHg) O2 Sat by Pulse 95 Oximetry 06/18/16 06/18/16 06/18/16 07:00 07:15 08:00 Temperature 99.3 F Pulse Rate 81 Respiratory 21 22 22 Rate Blood Pressure 113/51 (mmHg) O2 Sat by Pulse 96 Oximetry 06/18/16 06/18/16 06/18/16 09:00 10:00 11:00 Temperature Pulse Rate Respiratory 24 21 22 Rate Blood Pressure (mmHg) O2 Sat by Pulse Oximetry 06/18/16 06/18/16 11:16 12:00 Temperature 99.0 F Pulse Rate 81 Respiratory 22 24 Rate Blood Pressure 103/46 (mmHg) O2 Sat by Pulse 97 Oximetry Oxygen Devices in Use Now: None Appearance: 85 yo M in NAd, aAOx3 Eyes: No Scleral Icterus, PERRLA Ears/Nose/Mouth/Throat: NL Teeth, Lips, Gums, Mucous Membranes Moist Neck: NL Appearance and Movements; NL JVP, Trachea Midline Respiratory: Symmetrical Chest Expansion and Respiratory Effort, Clear to Auscultation Cardiovascular: NL Sounds; No Murmurs; No JVD, RRR Abdominal: NL Sounds; No Tenderness; No Distention Lymphatic: No Cervical Adenopathy Extremities: No Edema, No Clubbing, Cyanosis Skin: No Rash or Ulcers, No Nodules or Sclerosis Neurological: Alert and Oriented x 3, NL Muscle Strength and Tone Result Diagrams: 06/18/16 05:40 06/18/16 05:40 Additional Lab and Data: Lab Results 06/15/16 06/15/16 06/15/16 Range/Units 08:32 08:32 08:32 WBC 15.3 H (3.5-10.8) 10^3/ul RBC 3.07 L (4.0-5.4) 10^6/ul Hgb 6.7 L (14.0-18.0) g/dl Hct 22 L (42-52) % MCV 73 L (80-94) fL MCH 22 L (27-31) pg MCHC 30 L (31-36) g/dl RDW 18 H (10.5-15) % Plt Count 592 H (150-450) 10^3/ul MPV 6 L (7.4-10.4) um3 Immature Gran % (Auto) 4 (0-9) % Neut % (Auto) 86.0 H (38-83) % Lymph % (Auto) 5.5 L (25-47) % [place] % (Auto) 6.8 (1-9) % Eos % (Auto) 0.7 (0-6) % Baso % (Auto) 1.0 (0-2) % Absolute Neuts (auto) 13.1 H (1.5-7.7) 10^3/ul Absolute Lymphs (auto) 0.8 L (1.0-4.8) 10^3/ul Absolute Monos (auto) 1.0 H (0-0.8) 10^3/ul Absolute Eos (auto) 0.1 (0-0.6) 10^3/ul Absolute Basos (auto) 0.2 (0-0.2) 10^3/ul Absolute Nucleated RBC 0.01 10^3/ul Neutrophils % 90 H (38-83) % Band Neutrophils % 2 (0-8) % Lymphocytes % 5 L (25-47) % Monocytes % 1 (0-13) % Metamyelocytes % 2 (0-2) % Nucleated RBC % 0 Normal RBC Morphology Not Reportable Polychromasia 1+ Hypochromasia 2+ Basophilic Stippling 1+ Microcytosis 2+ Target Cells 1+ Elliptocytes 1+ INR (Anticoag Therapy) 1.16 H (0.89-1.11) APTT 27.0 (26.0-36.3) seconds Sodium 136 (133-145) mmol/L Potassium 4.3 (3.5-5.0) mmol/L Chloride 106 (101-111) mmol/L Carbon Dioxide 21 L (22-32) mmol/L Anion Gap 9 (2-11) mmol/L BUN 54 H (6-24) mg/dL Creatinine 0.88 (0.67-1.17) mg/dL Est GFR ( Amer) 105.4 (>60) Est GFR (Non-Af Amer) 81.9 (>60) BUN/Creatinine Ratio 61.4 H (8-20) Glucose 159 H (70-100) mg/dL Calcium 8.0 L (8.6-10.3) mg/dL Total Bilirubin 0.30 (0.2-1.0) mg/dL AST 27 (13-39) U/L ALT 6 L (7-52) U/L Alkaline Phosphatase 306 H (34-104) U/L Total Protein 5.3 L (6.4-8.9) g/dL Albumin 2.6 L (3.2-5.2) g/dL Globulin 2.7 (2-4) g/dL Albumin/Globulin Ratio 1.0 (1-3) Blood Type Antibody Screen Crossmatch 06/15/16 Range/Units 08:32 WBC (3.5-10.8) 10^3/ul RBC (4.0-5.4) 10^6/ul Hgb (14.0-18.0) g/dl Hct (42-52) % MCV (80-94) fL MCH (27-31) pg MCHC (31-36) g/dl RDW (10.5-15) % Plt Count (150-450) 10^3/ul MPV (7.4-10.4) um3 Immature Gran % (Auto) (0-9) % Neut % (Auto) (38-83) % Lymph % (Auto) (25-47) % [place] % (Auto) (1-9) % Eos % (Auto) (0-6) % Baso % (Auto) (0-2) % Absolute Neuts (auto) (1.5-7.7) 10^3/ul Absolute Lymphs (auto) (1.0-4.8) 10^3/ul Absolute Monos (auto) (0-0.8) 10^3/ul Absolute Eos (auto) (0-0.6) 10^3/ul Absolute Basos (auto) (0-0.2) 10^3/ul Absolute Nucleated RBC 10^3/ul Neutrophils % (38-83) % Band Neutrophils % (0-8) % Lymphocytes % (25-47) % Monocytes % (0-13) % Metamyelocytes % (0-2) % Nucleated RBC % Normal RBC Morphology Polychromasia Hypochromasia Basophilic Stippling Microcytosis Target Cells Elliptocytes INR (Anticoag Therapy) (0.89-1.11) APTT (26.0-36.3) seconds Sodium (133-145) mmol/L Potassium (3.5-5.0) mmol/L Chloride (101-111) mmol/L Carbon Dioxide (22-32) mmol/L Anion Gap (2-11) mmol/L BUN (6-24) mg/dL Creatinine (0.67-1.17) mg/dL Est GFR ( Amer) (>60) Est GFR (Non-Af Amer) (>60) BUN/Creatinine Ratio (8-20) Glucose (70-100) mg/dL Calcium (8.6-10.3) mg/dL Total Bilirubin (0.2-1.0) mg/dL AST (13-39) U/L ALT (7-52) U/L Alkaline Phosphatase (34-104) U/L Total Protein (6.4-8.9) g/dL Albumin (3.2-5.2) g/dL Globulin (2-4) g/dL Albumin/Globulin Ratio (1-3) Blood Type B Positive Antibody Screen Negative Crossmatch See Detail Microbiology and Other Data: Microbiology 06/15/16 14:25 Aerobic Blood Culture - Preliminary Blood Venous No Growth Day 1 Anaerobic Blood Culture - Preliminary No Growth Day 1 06/15/16 14:05 Aerobic Blood Culture - Preliminary Blood Venous No Growth Day 1 Anaerobic Blood Culture - Preliminary No Growth Day 1 06/15/16 14:35 Urine Culture - Final Urine No Growth (<1,000 CFU/mL) 06/15/16 11:27 CLOtest - Final Gastric Antrum Assess/Plan/Problems-Billing Assessment: 85 yo M p/w GO hemorrhage from duodenal ulcer in setting of NSAID use - Patient Problems (1) Acute blood loss anemia Comment: s/p 2 U PRBC transfusion on 06/17/16, Hb stable, will recheck in aM (2) Duodenal ulcer Comment: recurrent - also seen 2015 discharge on oral PPI developed in setting of NSAID use (3) HTN (hypertension) Comment: Holding chlorthalidone controlled (4) DVT prophylaxis Comment: SCDs in setting of GIB Status and Disposition: will ambulate today and d/c in aM
[2016-06-19 05:37] LABS: Hematocrit 31 % (42-52); Mean Corpuscular HGB Conc 33 g/dl (31-36); Mean Corpuscular Hemoglobin 26 pg (27-31); Mean Corpuscular Volume 78 fL (80-94); Mean Platelet Volume 7 um3 (7.4-10.4); Red Blood Count 3.91 10^6/ul (4.0-5.4); Red Cell Distribution Width 19 % (10.5-15); White Blood Count 14.1 10^3/ul (3.5-10.8)
[2016-06-19] MEDS: Omeprazole CAP* 20 MG PO SCH (08:29)
[2016-06-19] MEDS: Ferrous Sulfate TAB* 325 MG PO SCH (08:29)
[2016-06-19 08:33] VITALS: BP 119/59
--- NOTE | 2016-06-20 03:03 | DS ---
DISCHARGE SUMMARY: DATE OF ADMISSION: 06/15/16 DATE OF DISCHARGE: 06/19/16 PRIMARY CARE PROVIDER: Dr. Baxter. DISCHARGE DIAGNOSES: 1. Acute gastrointestinal bleed due to duodenal ulcer secondary to nonsteroidal antiinflammatory medication use. 2. Acute anemia due to above gastrointestinal hemorrhage, status post 2 units packed red blood cells transfusion during the hospital stay. SECONDARY DIAGNOSES: 1. History of two gastrointestinal bleeds in the past both in the setting of nonsteroidal use. 2. Hypertension. 3. Hyperlipidemia. 4. prostate cancer. 5. Peptic ulcer disease. CONSULTATIONS DURING THE HOSPITAL STAY: Included Yoel from Gastroenterology. MEDICATIONS AT DISCHARGE: Include: 1. Prilosec 20 mg p.o. b.i.d. 2. Ferrous sulfate 325 mg daily. 3. Chlorthalidone 50 mg daily. The patient takes it only when his blood pressure is elevated on a daily basis. 4. Calcium carbonate of 500 mg daily. LABORATORY DATA: During the hospital stay included: On 06/19/16, white blood cell count of 14.1, hemoglobin is 10.0, hematocrit of 31, MCV of 78, platelets of 536. Sodium 140, potassium 3.3, chloride 112, carbon dioxide 19, BUN 29, creatinine 0.84. PROCEDURE: EGD documented on 06/15/[address] Diallo showed "duodenal ulcers. 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 He was noted to have a hemoglobin of 6.7 on that admission. His upper endoscopy was performed by Dr. Diallo and documented duodenal ulcer. During the procedure, the ulcer was not bleeding. The patient was placed on Protonix drip for several days during his hospital stay and then transitioned to Prilosec orally. He overall received 4 units of packed red blood cells during the hospital stay and at the end of his hospital stay, his hemoglobin stabilized at the level of 10. The patient is recommended not to use nonsteroidal antiinflammatory medications and to continue b.i.d. Prilosec. The patient is also recommended to follow up with his primary care provider within the next 4 to 7 days. The patient was noted to have chronic leukocytosis that is consistent with prior reports. PHYSICAL EXAMINATION: At the time of discharge, blood pressure 119/59, heart rate of 93 and regular, respiratory rate 16, oxygen saturation on room air , temperature 98.4. General: A very pleasant 85-year-old male who is in no acute distress. Alert, awake, and oriented x3. HEENT: Head atraumatic, normocephalic. Eyes: Pupils equal and reactive to light and accommodation. Oropharynx clear. Mucosa moist. Neck: Supple. No JVD, no bruits bilaterally. Cardiovascular: Regular rate and rhythm. No murmurs. Respiratory: Clear to auscultation bilaterally. Abdomen: Soft, nontender. Bowel sounds present in all 4 quadrants. Extremities: There is no edema. Pulses are 2+ bilaterally. No clubbing or cyanosis. Please note that this is a short summary of the patient's hospital stay. Please refer to further medical records for details. TIME SPENT: Approximately 35 minutes was spent on the patient's discharge. CC: Dr. Diallo; Dr. Baxter* [id number]/[facility] #: [id number] [facility]
== END 2016-06-19 14:15 | disposition home or self-care (01) | DRG 378 ==
LOC: ED 08:15 → MEDTELE 09:14 → ICU 10:35 → MEDTELE 15:54
PROVIDERS: ADMIT Internal Medicine; ATTEND Internal Medicine
PROC: 0DB68ZX Excision of Stomach, Via Natural or Artificial Opening Endoscopic, Diagnostic (ICD-10-PCS; principal; 2016-06-15)
PROC: 30233N1 Transfusion of Nonautologous Red Blood Cells into Peripheral Vein, Percutaneous Approach (ICD-10-PCS; 2016-06-16)
DX: K26.0 Acute duodenal ulcer with hemorrhage (principal); D62 Acute posthemorrhagic anemia; K25.9 Gastric ulcer, unspecified as acute or chronic, without hemorrhage or perforation; I10 Essential (primary) hypertension; E78.5 Hyperlipidemia, unspecified; T39.395A Adverse effect of other nonsteroidal anti-inflammatory drugs [NSAID], initial encounter; Y92.009 Unspecified place in unspecified non-institutional (private) residence as the place of occurrence of the external cause; X58.XXXA Exposure to other specified factors, initial encounter; Z85.46 Personal history of malignant neoplasm of prostate; Z79.82 Long term (current) use of aspirin; Z79.899 Other long term (current) drug therapy; D72.829 Elevated white blood cell count, unspecified
CPT/HCPCS: 36415; 80048; 80053; 81003; 82272; 85014; 85018; 85025; 85027; 85610; 85730; 86850; 86900; 86901; 86922; 87040; 87077; 87086; 94760; A9270-GY; J2250; J3010; P9040

== ENCOUNTER 2016-10-06 11:03 | Inpatient (IN) | payer MEDICARE, BC ==
[2016-10-06] MEDS ORDERED: NS 0.9% 250 ML* 250 ML IV ONE (12:16)
[2016-10-06 13:10] LABS: Hematocrit 30 % (42-52); Hemoglobin 8.7 g/dl (14.0-18.0); Mean Corpuscular HGB Conc 29 g/dl (31-36); Mean Corpuscular Hemoglobin 21 pg (27-31); Mean Platelet Volume 6 um3 (7.4-10.4); Red Blood Count 4.15 10^6/ul (4.0-5.4); Red Cell Distribution Width 19 % (10.5-15); White Blood Count 11.5 10^3/ul (3.5-10.8)
[2016-10-06 13:11] LABS: Comments Flag Yes; Mean Corpuscular Volume 72 fL (80-94)
[2016-10-06 13:26] LABS: BUN/Creatinine Ratio 32.1 (8-20); Calcium 8.2 mg/dL (8.6-10.3); EGFR African American 110.9 (>60); EGFR Non-African American 86.2 (>60); Globulin 3.6 g/dL (2-4); Potassium 4.2 mmol/L (3.5-5.0); Total Bilirubin 0.4 mg/dL (0.2-1.0); Total Protein 6.6 g/dL (6.4-8.9)
--- NOTE | 2016-10-06 13:31 | RAD ---
Indication: Dysphagia. 2 views of the chest are reviewed with dual energy PA views. No mediastinal shift is noted. Heart is of normal size and configuration. Lung nelson demonstrate no pleural fluid, pneumonia or pneumothorax. There is increased density in the vertebral bodies and prostate carcinoma cannot be excluded. IMPRESSION: No active cardiopulmonary disease is noted. Multiple sclerotic lesions in the bone for which prostate cancer metastases is not excluded.
--- NOTE | 2016-10-06 13:55 | ED ---
GI/ HPI - HPI Summary HPI Summary: Pt here with inability to swallow saliva today. He has had a progression of difficulty swallowing foods and has been able to drink fluids, but was not able to do so today. He reports some soreness in Rt submandibular area but not alessandro ST. Denies fever, chills, N/V/D, resp sx, chest pain, SOB, cough, ab pain. His appetite is poor. He has h/o fe def anemia w/ GI bleed from duodenal ulcer requiring blood transfusion years ago. Has been taking iron for Fe def anemia - dark stools as a result - tough to tell if this is from iron or bleeding? Denies alessandro hematochezia. Has been feeling fatigued in general. Lives alone and does not feel he can care for himself at this time. H/o prostate CA and GERD. Denies known Mendez's esophagus nor mass or mets. - History of Current Complaint Chief Complaint: EDGeneral Time Seen by Provider: 10/06/16 12:03 Stated Complaint: UNABLE TO SWALLOW Hx Obtained From: Patient, Family/Gas Leak Inspector Helper - daughter Pain Intensity: 0 - Additional Pertinent History Primary Care Physician: [id number] - Allergy/Home Medications Allergies/Adverse Reactions: Allergies Allergy/AdvReac Type Severity Reaction Status Date / Time No Known Allergies Allergy Verified 10/06/16 11:07 PMH/Surg Hx/FS Hx/Imm Hx Previously Healthy: Yes Endocrine/Hematology History: Reports: Hx Blood Transfusions, Hx Unexplained Bleeding - Hx GI Bleed Denies: Hx Anticoagulant Therapy, Hx Blood Disorders, Hx Bone Marrow Disease , Hx Diabetes, Hx Systemic Lupus Erythematosus, Hx Sickle Cell Disease, Hx Thyroid Disease, Hx Anemia Cardiovascular History: Reports: Hx Hypercholesterolemia, Hx Hypertension Denies: Hx Aneurysm, Hx Angina, Hx Angioplasty, Hx Auto Implanted Cardiovert Defib, Hx Cardiac Arrest, Hx Cardiomegaly, Hx Congenital Heart Disease, Hx Congestive Heart Failure, Hx Coronary Artery Disease, Hx Deep Vein Thrombosis, Hx Embolism, Hx Hypotension, Hx Pacemaker/ICD, Hx Peripheral Vascular Disease, Hx Rheumatic Fever, Hx Syncope, Hx Valvular Heart Disease Respiratory History: Denies: Hx Asthma, Hx Chronic Bronchitis, Hx Chronic Obstructive Pulmonary Disease (COPD), Hx Cystic Fibrosis, Hx Lung Cancer, Hx Pleural Effusion, Hx Pneumonia, Hx Pulmonary Edema, Hx Pulmonary Embolism, Hx Seasonal Allergies, Hx Sleep Apnea GI History: Reports: Hx Gastrointestinal Bleed - Upper GI BLeed with Ulcer, Hx Ulcer, Other GI Disorders - asa induced ulcer approx 30 yrs ago Denies: Hx Cirrhosis, Hx Crohn's Disease, Hx Diverticulosis, Hx Gall Bladder Disease, Hx Gastroesophageal Reflux Disease, Hx Hiatal Hernia, Hx Irritable Bowel, Hx Jaundice, Hx Obstructive Bowel, Hx Ileostomy, Hx Pyloric Stenosis History: Reports: Other Problems/Disorders - Prostate cancer Denies: Hx Acute Renal Failure, Hx Benign Prostatic Hyperplasia - Prostate CA , Hx Chronic Renal Failure, Hx Dialysis, Hx Kidney Infection, Hx Kidney Stones Musculoskeletal History: Reports: Other Musculoskeletal History - osteo arthritis, 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 Denies: Hx Arthritis, Hx Back Problems, Hx Bursitis, Hx Congenital Bone Abnormalities, Hx Fibromyalgia, Hx Gout, Hx Orthopedic Injury, Hx Osteoporosis, Hx Scoliosis, Hx Tendonitis Sensory History: Reports: Hx Contacts or Glasses Denies: Hx Cataracts, Hx Eye Injury, Hx Eye Prosthesis, Hx Glaucoma, Hx Legally Blind, Hx Macular Degeneration, Hx Vision Problem, Hx Deafness, Hx Hearing Aid, Hx Hearing Problem, Other Sensory Impairments Opthamlomology History: Reports: Hx Contacts or Glasses Denies: Hx Cataracts, Hx Eye Injury, Hx Eye Prosthesis, Hx Glaucoma, Hx Legally Blind, Hx Macular Degeneration, Hx Vision Problem, Other Sensory Impairments Psychiatric History: Denies: Hx Anxiety, Hx Attention Deficit Hyperactivity Disorder, Hx Eating Disorder, Hx Depression, Hx Panic Disorder, Hx Post Traumatic Stress Disorder, Hx Inpatient Treatment, Hx Community Mental Health Tx, Hx Schizophrenia, Hx Bipolar Disorder, Hx Suicide Attempt, Hx of Violent Episodes Against Others, Hx Substance Abuse - Cancer History Cancer Type, Location and Year: prostate' Hx Chemotherapy: Yes Hx Radiation Therapy: Yes Hx Palliative Cancer Treatment: No - Surgical History Surgery Procedure, Year, and Place: prostatectomy, Tonsils removed when he was 1 Hx Anesthesia Reactions: No Infectious Disease History: No Infectious Disease History: Denies: Hx Hepatitis, Hx Tuberculosis, Traveled Outside the [place] in Last 30 Days - Family History Known Family History: Positive: None Negative: Blood Disorder - Social History 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 Negative: Fever, Chills ENT: Other - see HPI Negative: Ear Ache, Nasal Discharge Negative: Chest Pain Negative: Shortness Of Breath, Cough Gastrointestinal: Negative Negative: Abdominal Pain, Vomiting, Diarrhea, Nausea Positive: no symptoms reported Musculoskeletal: Negative Skin: Negative Neurological: Negative Psychological: Normal All Other Systems Reviewed And Are Negative: Yes Physical Exam Triage Information Reviewed: Yes Vital Signs On Initial Exam: Initial Vitals Temp Pulse Resp BP Pulse Ox 98.1 F 95 20 131/45 97 10/06/16 11:08 10/06/16 11:08 10/06/16 11:08 10/06/16 11:08 10/06/16 11:08 Vital Signs Reviewed: Yes Appearance: Positive: No Pain Distress, Thin - generalized pallor, alert and oriented however appear fatigued - daughter is present w/ him today Skin: Positive: Warm, Dry Head/Face: Positive: Normal Head/Face Inspection Eyes: Positive: Normal, EOMI, Conjunctiva Clear - mucous membranes pink ENT: Positive: Hearing grossly normal, Pharynx normal, TMs normal. Negative: Nasal congestion, Nasal drainage, Tonsillar swelling, Tonsillar exudate, Trismus , Muffled/hoarse voice, Dental tenderness Dental: Negative: Abscess @ Neck: Positive: Supple, No Lymphadenopathy - CC nor supraclavicular, Tenderness @ - Rt submandibular region - no edema Respiratory/Lung Sounds: Positive: Clear to Auscultation, Breath Sounds Present. Negative: Rales, Rhonchi, Subcutaneous Emphysema, Stridor, Tracheal Deviation, Wheezes Cardiovascular: Positive: Normal, RRR, S1, S2. Negative: Murmur, Rub Abdomen Description: Positive: Nontender, No Organomegaly, Soft Bowel Sounds: Positive: Present Musculoskeletal: Positive: Normal, Strength/ROM Intact Neurological: Positive: Normal, Sensory/Motor Intact, Alert, Oriented to Person Place, Time, CN Intact II-III Psychiatric: Positive: Normal - Kia Coma Scale Coma Scale Total: 15 Diagnostics - Vital Signs Vital Signs Temp Pulse Resp BP Pulse Ox 10/06/16 13:00 76 125/45 100 10/06/16 12:56 110/44 10/06/16 12:42 78 97 10/06/16 12:30 77 114/51 97 10/06/16 12:00 77 114/55 98 10/06/16 11:30 86 106/54 98 10/06/16 11:21 88 122/49 99 10/06/16 11:08 98.1 F 95 20 131/45 97 - Laboratory Lab Results: Lab Results 10/06/16 10/06/16 10/06/16 Range/Units 13:00 13:00 13:00 WBC 11.5 H (3.5-10.8) 10^3/ul RBC 4.15 (4.0-5.4) 10^6/ul Hgb 8.7 L (14.0-18.0) g/dl Hct 30 L (42-52) % MCV 72 L (80-94) fL MCH 21 L (27-31) pg MCHC 29 L (31-36) g/dl RDW 19 H (10.5-15) % Plt Count 771 H (150-450) 10^3/ul MPV 6 L (7.4-10.4) um3 Neut % (Auto) 87.7 H (38-83) % Lymph % (Auto) 4.8 L (25-47) % [place] % (Auto) 5.9 (1-9) % Eos % (Auto) 0.2 (0-6) % Baso % (Auto) 1.4 (0-2) % Absolute Neuts (auto) 10.1 H (1.5-7.7) 10^3/ul Absolute Lymphs (auto) 0.6 L (1.0-4.8) 10^3/ul Absolute Monos (auto) 0.7 (0-0.8) 10^3/ul Absolute Eos (auto) 0 (0-0.6) 10^3/ul Absolute Basos (auto) 0.2 (0-0.2) 10^3/ul Absolute Nucleated RBC 0.01 10^3/ul Nucleated RBC % 0 Sodium 133 (133-145) mmol/L Potassium 4.2 (3.5-5.0) mmol/L Chloride 101 (101-111) mmol/L Carbon Dioxide 24 (22-32) mmol/L Anion Gap 8 (2-11) mmol/L BUN 27 H (6-24) mg/dL Creatinine 0.84 (0.67-1.17) mg/dL Est GFR ( Amer) 110.9 (>60) Est GFR (Non-Af Amer) 86.2 (>60) BUN/Creatinine Ratio 32.1 H (8-20) Glucose 99 (70-100) mg/dL Calcium 8.2 L (8.6-10.3) mg/dL Total Bilirubin 0.40 (0.2-1.0) mg/dL AST 18 (13-39) U/L ALT 6 L (7-52) U/L Alkaline Phosphatase 346 H (34-104) U/L Total Protein 6.6 (6.4-8.9) g/dL Albumin 3.0 L (3.2-5.2) g/dL Globulin 3.6 (2-4) g/dL Albumin/Globulin Ratio 0.8 L (1-3) TSH Pending Blood Type B Positive Antibody Screen Pending Result Diagrams: 10/06/16 13:00 10/06/16 13:00 Lab Statement: Any lab studies that have been ordered have been reviewed, and results considered in the medical decision making process. GIGU Course/Dx - Course Course Of Treatment: Pt presents w/ progressive dysphagia. Here today as he can no longer swallow liquids. H/o duodenal ulcer requiring blood transfusion, Fe def anemia (taking Fe currently), prostate CA and GERD. CXR reveals sclerotic lesions of spine. Barium swallow with patent esophagus however radiology reports he aspirated during exam. Speech study ordered. Spoke w/ Dr. Piedra about admission d/t lack of nourishment and inability to self-nourish at this time. Agrees to see pt. Pt stable at time of referral. Diff dx: occult mass in oropharyngeal area, [place] Lester syndrome - Diagnoses Provider Diagnoses: Dysphagia, Chronic anemia - Physician Notifications Discussed Care Of Patient With: DR. Piedra Discharge - Discharge Plan Condition: Stable Disposition: ADMITTED TO [facility]
[2016-10-06 13:59] LABS: TSH (Thyroid Stimulating Horm) 4.12 mcIU/mL (0.34-5.60)
--- NOTE | 2016-10-06 14:11 | RAD ---
CPT II Codes: 6045F INDICATION: Difficulty swallowing liquids. Approximately 1 minute of fluoroscopy time was used. No obvious masses are noted in the pharynx. No obstructive lesion is noted. There was one instance of aspiration of barium. The esophagus demonstrates no evidence of obstruction. There is likely nonspecific esophageal dysmotility. IMPRESSION: No definite masses causing obstruction is noted in the pharynx or esophagus although evaluation of the oral and pharyngeal phases of deglutition is limited due to patient condition.
[2016-10-06] MEDS ORDERED: Ondansetron INJ* 2 MG/ML VIAL IV PRN (14:35)
[2016-10-06] MEDS ORDERED: NS 0.9% 1000 ML* 1,000 ML IV SCH (14:45)
[2016-10-06] MEDS: Omeprazole CAP* 20 MG PO SCH (16:26)
[2016-10-06] MEDS: NS 0.9% 1000 ML* 1,000 ML IV SCH ×2 (16:27→23:57)
[2016-10-06] MEDS ORDERED: Acetaminophen ADULT LIQ* 650 MG/20.3 ML UDC PO PRN (19:55)
[2016-10-06] MEDS: Heparin VIAL(*) 5000 UNITS/ML VIAL (FIVE THOUSAND) SUBCUT SCH (21:55)
--- NOTE | 2016-10-07 00:37 | HP ---
CC: Parker Baxter MD * HISTORY AND PHYSICAL: ADMISSION DATE: 10/06/16 CHIEF COMPLAINT: Trouble swallowing. HISTORY OF PRESENT ILLNESS: The patient is an 86-year-old gentleman since the last 3 to 4 days has been getting progressively worse where he could not swallow. Now, he cannot even swallow his own saliva. He says the whole problem started about 1 to 2 weeks ago. He feels like it is in his upper throat. He has a thick mucus that has been productive. He thinks he has some postnasal drip and thinks it is coming from above. He denies any vomiting. He has never had this before. He has no chest pain, no abdominal pain. He does have some jaw pain, right greater than left. He has not been able to take anything orally for the last couple of days. PAST MEDICAL HISTORY: He has a past medical history significant for hypertension, hyperlipidemia, prostate cancer, GI bleeds, peptic ulcer disease. MEDICATIONS: Medications include: 1. Chlorthalidone 50 mg daily. 2. Ferrous sulfate 325 mg daily. 3. Calcium with vitamin D 500 mg daily. 4. Omeprazole 20 mg daily. ALLERGIES: He has no known drug allergies. FAMILY HISTORY: Reviewed, noncontributory. SOCIAL HISTORY: No tobacco, alcohol, or recreational drug use. 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 He is . He has 4 children. His son, Eb , is his healthcare proxy. REVIEW OF SYSTEMS: A 14-point review of systems was completed with the patient. All pertinent positives and negatives are in the history of present illness, otherwise negative. PHYSICAL EXAMINATION GENERAL: A pleasant gentleman, sitting up in bed, in no acute distress. VITAL SIGNS: Temperature 99.1 degrees, heart rate 82 beats per minute, respiratory rate 16 breaths per minute, pulse oxygenation 100% on room air, blood pressure is 145/48. HEENT: Normocephalic and atraumatic. Pupils are equal, round, and reactive to light. Moist mucous membranes. NECK: Supple. No JVD, bruits, palpable thyroid or lymphadenopathy. CHEST: Clear to auscultation and percussion bilaterally. CARDIOVASCULAR: S1, S2 appreciated. ABDOMINAL EXAM: Positive bowel sounds in all 4 quadrants. Soft, nontender, nondistended. EXTREMITIES: No cyanosis or clubbing, +2 peripheral pulses bilaterally. NEURO: Alert and oriented x3. Moves all extremities. SKIN: No rashes or other abnormalities. DIAGNOSTIC STUDIES/LAB DATA: White count 11.5, hemoglobin 8.7, hematocrit 30, platelets 771. Sodium 133, potassium 4.2, chloride 101, CO2 24, BUN 27, creatinine 2.84, glucose is 99. Alk phos 346. Chest x-ray shows no active cardiopulmonary disease, multiple sclerotic lesions in the bone for which prostate cancer metastases is not excluded. ASSESSMENT AND PLAN: 1. Dysphagia. Uncertain etiology. It is very much near the upper portion of his esophagus or even higher. It is fairly rapid in onset. At this point, it is unclear as to the etiology. We will get a barium swallow. If this does not reveal anything, we will get GI to probably scope him again in the next 1 to 2 days. For now, we will give him normal saline 100 cc an hour, Zofran p.r.n. for nausea, Prilosec as well. 2. Hypertension, well controlled. 3. Chlorthalidone continued with parameters. 4. DVT prophylaxis, heparin subcu. 5. Anemia, stable, monitor. 6. FEN. NPO with fluids. 7. The patient is a do not resuscitate. TIME SPENT: Over 75 minutes was spent on this H and P, more than 40 minutes of which were spent in direct [id number] contact with the patient in evaluation, physical exam, and counseling and coordination of care. [id number]/CPS #: [id number] MTDD
[2016-10-07] MEDS: Heparin VIAL(*) 5000 UNITS/ML VIAL (FIVE THOUSAND) SUBCUT SCH ×3 (06:07→21:14)
[2016-10-07] MEDS: Ferrous Sulfate TAB* 325 MG PO SCH (07:18)
[2016-10-07] MEDS: Omeprazole CAP* 20 MG PO SCH ×2 (07:18→15:46)
[2016-10-07] MEDS: NS 0.9% 1000 ML* 1,000 ML IV SCH ×2 (08:16→21:19)
[2016-10-07] MEDS ORDERED: Morphine INJ* 2 MG/ML 1 ML SYRINGE IV PRN (11:03)
--- NOTE | 2016-10-07 11:15 | PN ---
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 He reports that he most recent PSA was 400, he states that he has no known metastases. He had pelvic imaging at the [place] ~1 [place] ago which he does not know the results of. He presented to the hospital with complaints of the inability to swallow. He states his symptoms have been progressive over weeks. He has lost ~10 lbs in the last week and 50 pounds in the last 6 months. He denies any feeling of obstruction as he attempts to swallow, he is just unable to manage the function. This morning he reports he is just overall "miserable". Denies specific pain or SOB. No abd pain. Objective Active Medications: Acetaminophen (Tylenol Adult Liq*) 650 mg PO Q6H PRN PRN Reason: FEVER/PAIN Last Admin: 10/06/16 20:20 Dose: 650 mg Ferrous Sulfate (Ferrous Sulfate Tab*) 325 mg PO DAILY [facility] Last Admin: 10/07/16 07:18 Dose: Not Given Heparin Sodium (Porcine) (Heparin Vial(*)) 5,000 units SUBCUT Q8HR [facility] Last Admin: 10/07/16 06:07 Dose: 5,000 units Sodium Chloride (Ns 0.9% 1000 Ml*) 1,000 mls @ 125 mls/hr IV PER RATE [facility] Last Admin: 10/07/16 08:16 Dose: 125 mls/hr Morphine Sulfate (Morphine Inj (Syringe)*) 2 mg IV Q4H PRN PRN Reason: PAIN - MILD Omeprazole (Prilosec Cap*) 20 mg PO 0730,1630 [facility] Last Admin: 10/07/16 07:18 Dose: Not Given Ondansetron HCl (Zofran Inj*) 4 mg IV Q4H PRN PRN Reason: NAUSEA Vital Signs: Temp Pulse Resp BP Pulse Ox 97.2 F 87 16 128/46 97 10/07/16 07:28 10/07/16 07:28 10/07/16 08:00 10/07/16 07:28 10/07/16 07:28 Oxygen Devices in Use Now: None Appearance: Cachetic appearing elderly gentleman who appears mildly uncomfortable, but in NAD Ears/Nose/Mouth/Throat: Clear Oropharnyx, Mucous Membranes Moist Respiratory: Symmetrical Chest Expansion and Respiratory Effort, Clear to Auscultation Cardiovascular: NL Sounds; No Murmurs; No JVD, RRR Abdominal: NL Sounds; No Tenderness; No Distention Extremities: No Edema Skin: No Rash or Ulcers Neurological: Alert and Oriented x 3 Result Diagrams: 10/06/16 13:00 10/06/16 13:00 Additional Lab and Data: . Diagnostic Imaging: XR esophagus - NAD CXR - NAD, but multiple sclerotic lesions possibly patient services representative of bony mets Assess/Plan/Problems-Billing Assessment: This is an 86 yo gentleman with HTN, HLD prior GI bleed and known prostate CA that he has chosen not to treat diagnosed ~20 yrs ago who presents with inability to swallow and rapid weight loss. - Patient Problems (1) Dysphagia Comment: Pending barium swallow, his complaint is proximal and sounds like it may be neurological Major concern for metastases related to his prostate CA contributing to his current presentation Assuming the barium swallow is non-diagnostic, will order CT of soft tissues of the neck and MRI of the brain with contrast to eval for metastases Will also asked speech therapy to evaluate He remains NPO at this time with IVF running, consider PPN depending on above results (2) Malnutrition Comment: Severe protein calorie malnutrition ~25% loss in body weight in ~6months Appears clinically cachectic with severe muscle wasting and loss of SQ fat Suspect related to malignancy (3) Prostate CA Comment: Diagnosed ~20 years ago [facility] to [facility] CXR is suggestive of possible bony metastases Pending MRI of the brain and CT of soft tissues of the neck (4) HLD (hyperlipidemia) (5) HTN (hypertension) Comment: Normotensive Unable to tolerate anything orally at this time Cont to monitor (6) DNR (do not resuscitate) (7) DVT prophylaxis Comment: SQ heparin Status and Disposition: Inpatient. Imaging pending.
[2016-10-07] MEDS ORDERED: Iohexol 300* (CONTRAST) 10 ML SDV IV ONE ×2 (11:40→19:25)
--- NOTE | 2016-10-07 14:21 | RAD ---
INDICATION: Dysphagia. COMPARISON: October 06, 2016 esophagram. TECHNIQUE: Videofluoroscopy swallowing function exam performed in conjunction with speech pathology. Patient seated in a Hausted chair and viewed in the lateral plane. The patient swallowed various consistencies of liquids and solid foodstuff coated with barium. 3.9 minutes fluoroscopy. REPORT: Limited to no excursion of the epiglottis with deglutition. Significant volume aspiration with thin liquids and smaller volume with thicker consistency liquids and solids. Prolonged oral phase of deglutition with solids. Retained liquid and solids in the vallecula. IMPRESSION: Laryngeal aspiration with liquids and solids most marked with thin liquids. CPT II: CPT II Codes: 6045F
[2016-10-07] MEDS ORDERED: Gadoteridol* (CONTRAST) 279.3 MG/ML 10 ML IV ONE (15:27)
--- NOTE | 2016-10-07 16:26 | RAD ---
HISTORY: Dysphasia, history of prostate cancer COMPARISONS: None TECHNIQUE: The following sequences were obtained of the head: Sagittal T1-weighted images, axial T2-weighted images, axial FLAIR images, axial susceptibility weighted images, axial T1-weighted images. Additionally, axial diffusion-weighted images were obtained with calculated apparent diffusion coefficients. Additionally, sagittal, coronal, and axial T1-weighted images were obtained after contrast enhancement with a gadolinium-based intravenous contrast agent. FINDINGS: HEMORRHAGE/INFARCT: There is no hemorrhage or acute infarct. MASSES/SHIFT: There is no mass or shift. EXTRA-AXIAL SPACES/MENINGES: There are no extra-axial fluid collections. SULCI AND VENTRICLES: There is diffuse and proportional enlargement of the sulci and ventricles. CEREBRUM: There are multiple scattered small foci of elevated T2/FLAIR signal within the periventricular and subcortical white matter. These do not enhance BRAINSTEM: There are no focal parenchymal abnormalities. CEREBELLUM: There are no focal parenchymal abnormalities. The cerebellar tonsils are normal in size and position. SELLA: The sella is normal. PINEAL: The pineal region is clear. CP ANGLE/TEMPORAL BONES: The labyrinthine structures are grossly normal. VESSELS: Normal flow-voids are noted within the visualized vertebral vasculature. DIFFUSION ABNORMALITIES: There are no diffusion abnormalities. PARANASAL SINUSES/MASTOIDS: The paranasal sinuses are clear. There are bilateral mastoid effusions. ORBITS: The orbits are unremarkable. BONES AND SOFT TISSUE: There is diffusely decreased T1 signal and T2 signal within the visualized portion of the cervical spine suggestive of osteoblastic metastatic disease. OTHER: There is no abnormal enhancement. IMPRESSION: 1. DIFFUSE INVOLUTIONAL CHANGE. 2. THERE ARE MULTIPLE FOCI OF ELEVATED T2/FLAIR SIGNAL WITHIN THE PERIVENTRICULAR AND SUBCORTICAL WHITE MATTER. THESE DO NOT ENHANCE. WHILE THESE FINDINGS ARE NONSPECIFIC, THEY CAN BE SEEN IN ASSOCIATION WITH MIGRAINE HEADACHE, THE SEQUELA OF PREVIOUS INFECTION OR INFLAMMATION, AND CHRONIC SMALL VESSEL ISCHEMIA. DEMYELINATING DISEASE IS ALSO WITHIN THE DIFFERENTIAL, BUT IS CONSIDERED LESS LIKELY IN THE ABSENCE OF THE APPROPRIATE CLINICAL PRESENTATION. 3. NO ABNORMAL ENHANCEMENT, VASOGENIC EDEMA, OR SPACE-OCCUPYING LESION TO SUGGEST METASTATIC DISEASE TO THE BRAIN. 4. 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
[2016-10-07] MEDS ORDERED: Morphine INJ* 4 MG/ML 1 ML SYRINGE ONE (17:32)
--- NOTE | 2016-10-07 17:43 | PN ---
Hospitalist Progress Note Discussed findings of MRI with patient and reviewed with Dr Nunez. There are no lesions that would clearly explain his complaints of garbled speech and severe dysphagia. Speech therapy's evaluation suggests his dysphagia appears to be due to oropharyngeal weakness and dysfunction. Reviewed patient's goals of treat with him. He clearly stated "comfort" is his goal. He is aware that he is not an appropriate candidate for further chemotherapy with his current functional and nutritional status. He would like to speak with the neurologist but is not interested in more aggressive treatment or diagnostic measures. He would very much like to try ice cream, being aware of his risk for aspiration. His diet order has been changed to comfort measures and orders written for higher doses of IV morphine. He is unable to make further decisions at this time, but perhaps would like to consider Hospice with his at [facility]. Palliative consult requested.
--- NOTE | 2016-10-07 20:05 | RAD ---
HISTORY: Prostate cancer, metastatic disease, severe dysphasia COMPARISONS: None TECHNIQUE: Multiple contiguous axial CT scans were obtained of the cervical spine after the administration of nonionic intravenous contrast, with coronal and sagittal multiplanar reformations. FINDINGS: BRAIN: The visualized brain is unremarkable CENTRAL CANAL: Evaluation of the central canal is limited on CT technique; however, there is no obvious canalicular mass or epidural hemorrhage. ALIGNMENT: There is straightening of the cervical lordosis. VERTEBRAL BODIES: The bones are diffusely sclerotic consistent with diffuse osteoblastic metastatic disease given the history of prostate cancer. There is multilevel anterolateral marginal osteophyte formation. There is no displaced fracture or dislocation. There is no significant impression upon the posterior pharynx. JOINTS: There is osteoarthritis of the atlantoaxial articulation. There is osteoarthritis of the uncovertebral and facet joints MUSCULATURE: Unremarkable INTERVERTEBRAL DISCS: There is diffuse loss of intervertebral disc height. AXIAL IMAGES: C2-C3: There is bilateral uncovertebral facet hypertrophy. There is moderate bilateral neural foraminal narrowing. There is no osseous central canal stenosis. C3-C4: There is bilateral uncovertebral and facet hypertrophy. There is severe right and moderate left neural foraminal narrowing. There is no osseous central canal stenosis. C4-C5: There is bilateral uncovertebral and facet hypertrophy. There is severe bilateral neural foraminal narrowing. There is mild narrowing of the central canal. C5-C6: There is bilateral vertebral and facet hypertrophy. There is severe bilateral neural foraminal narrowing. There is moderate narrowing of the osseous central canal. C6-C7: There is bilateral uncovertebral and facet hypertrophy. There is severe bilateral neural foraminal narrowing. There is moderate narrowing of the osseous central canal. C7-T1: There is no osseous neural foraminal narrowing or central canal stenosis. SOFT TISSUES: There is a 1.8 cm left thyroid nodule OTHER: There is no abnormal enhancement. IMPRESSION: 1. DIFFUSE SCLEROSIS OF THE VISUALIZED PORTIONS SKELETON CONSISTENT WITH DIFFUSE OSTEOBLASTIC METASTATIC DISEASE. 2. DEGENERATIVE DISC DISEASE AND OSTEOARTHRITIS. 3. THERE IS MODERATE NARROWING OF THE CENTRAL CANAL AT C5-C6 AND C6-C7 WITH MILD NARROWING AT C4-C5. 4. THERE IS MULTILEVEL NEURAL FORAMINAL NARROWING DESCRIBED ABOVE. 5. 1.8 CM LEFT THYROID NODULE. RECOMMEND CONSIDERATION CORRELATION WITH DEDICATED IMAGING OF THE THYROID IN THE NONACUTE
[2016-10-07] MEDS: Morphine INJ* 4 MG/ML 1 ML SYRINGE IV PRN (21:14)
[2016-10-08] MEDS: Morphine INJ* 4 MG/ML 1 ML SYRINGE IV PRN ×3 (00:15→18:47)
[2016-10-08] MEDS: Heparin VIAL(*) 5000 UNITS/ML VIAL (FIVE THOUSAND) SUBCUT SCH ×3 (05:46→21:48)
[2016-10-08 05:48] LABS: Comments Flag Yes; Hematocrit 31 % (42-52); Hemoglobin 9.2 g/dl (14.0-18.0); Mean Corpuscular HGB Conc 29 g/dl (31-36); Mean Corpuscular Hemoglobin 22 pg (27-31); Mean Corpuscular Volume 74 fL (80-94); Mean Platelet Volume 6 um3 (7.4-10.4); Red Blood Count 4.25 10^6/ul (4.0-5.4); Red Cell Distribution Width 20 % (10.5-15); White Blood Count 11.4 10^3/ul (3.5-10.8)
[2016-10-08] MEDS: NS 0.9% 1000 ML* 1,000 ML IV SCH (05:57)
[2016-10-08 06:01] LABS: BUN/Creatinine Ratio 21.3 (8-20); Calcium 8.4 mg/dL (8.6-10.3); EGFR African American 126.4 (>60); EGFR Non-African American 98.3 (>60); Potassium 3.9 mmol/L (3.5-5.0)
[2016-10-08] MEDS: Ferrous Sulfate TAB* 325 MG PO SCH (07:12)
[2016-10-08] MEDS: Omeprazole CAP* 20 MG PO SCH ×2 (07:12→15:41)
--- NOTE | 2016-10-08 08:53 | PN ---
Subjective Date of Service: 10/08/16 Interval History: Mr. San states that he is feeling relatively well this morning. He denies chest pain, SOB, nausea, or abdominal pain. He remains unable to swallow without aspirating. He denies focal weakness, numbness or tingling. Objective Active Medications: Acetaminophen (Tylenol Adult Liq*) 650 mg PO Q6H PRN Ferrous Sulfate (Ferrous Sulfate Tab*) 325 mg PO DAILY ROGELIO Heparin Sodium (Porcine) (Heparin Vial(*)) 5,000 units SUBCUT Q8HR ROGELIO Sodium Chloride (Ns 0.9% 1000 Ml*) 1,000 mls @ 125 mls/hr IV PER RATE ROGELIO Morphine Sulfate (Morphine Inj (Syringe)*) 4 mg IV Q2H PRN Omeprazole (Prilosec Cap*) 20 mg PO 0730,1630 ROGELIO Ondansetron HCl (Zofran Inj*) 4 mg IV Q4H PRN Vital Signs 10/07/16 10/07/16 10/07/16 11:25 12:25 15:09 Temperature 97.6 F 98.0 F Pulse Rate 84 79 Respiratory 16 18 20 Rate Blood Pressure 145/69 143/55 (mmHg) O2 Sat by Pulse 98 98 Oximetry 10/07/16 10/07/16 10/07/16 17:34 18:34 20:00 Temperature Pulse Rate Respiratory 16 16 18 Rate Blood Pressure (mmHg) O2 Sat by Pulse Oximetry 10/07/16 10/07/16 10/07/16 20:12 21:14 22:14 Temperature 98.1 F Pulse Rate 84 Respiratory 18 18 16 Rate Blood Pressure 134/60 (mmHg) O2 Sat by Pulse 97 Oximetry 10/07/16 10/08/16 10/08/16 23:22 00:15 01:15 Temperature 98.3 F Pulse Rate 87 Respiratory 16 16 16 Rate Blood Pressure 132/45 (mmHg) O2 Sat by Pulse 95 Oximetry 10/08/16 10/08/16 10/08/16 03:34 05:07 05:45 Temperature 97.6 F 97.9 F Pulse Rate 87 80 97 Respiratory 16 18 16 Rate Blood Pressure 127/54 107/45 113/56 (mmHg) O2 Sat by Pulse 97 97 96 Oximetry 10/08/16 10/08/16 10/08/16 06:22 07:29 07:46 Temperature 97.7 F Pulse Rate 98 97 Respiratory 18 16 16 Rate Blood Pressure 120/51 102/50 (mmHg) O2 Sat by Pulse 96 98 Oximetry Oxygen Devices in Use Now: None Appearance: Cachectic elderly male sitting up in chair in NAD Eyes: No Scleral Icterus Ears/Nose/Mouth/Throat: Mucous Membranes Moist Neck: Trachea Midline Respiratory: Symmetrical Chest Expansion and Respiratory Effort, Clear to Auscultation Cardiovascular: NL Sounds; No Murmurs; No JVD, No Edema Abdominal: NL Sounds; No Tenderness; No Distention Lymphatic: No Cervical Adenopathy Extremities: No Edema Skin: No Rash or Ulcers Neurological: Alert and Oriented x 3, NL Muscle Strength and Tone Result Diagrams: 10/08/16 05:30 10/08/16 05:27 Additional Lab and Data: . Diagnostic Imaging: XR esophagus: no definite mass. CXR: no active cardiopulmonary disease, but multiple sclerotic lesions possibly commercial sales representative of bony mets. MRI Brain: No evidence of metastatic lesion to the brain. Cervical CT: Diffuse osteoblastic metastatic disease. Assess/Plan/Problems-Billing Assessment: Mr. 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 - Patient Problems (1) Prostate CA Comment: - Diagnosed ~20 years ago. Has undergone chemotherapy for metastatic lesions but has opted to forego further treatment. - CT cervical spine demonstrates diffuse metastatic involvement. Have requested recent bone scan and CT pelvis records [facility]. - Appreciate Onc consult, no palliative treatment options given dysphagia and overall very poor functional status. - Hospice consult pending. (2) Dysphagia Comment: - Barium swallow demonstrates aspiration of liquids. - ? if secondary to diffuse metastatic invasion of the cervical spine or paraneoplastic syndrome but have asked neurology for consultation. - Patient does not want to pursue PEG tube placement. (3) Malnutrition Comment: - Severe protein calorie malnutrition. ~25% loss in body weight in ~6months. Appears clinically cachectic with severe muscle wasting and loss of SQ fat. - Suspect related to malignancy. (4) HTN (hypertension) Comment: - BP well controlled. - Unable to tolerate oral meds due to dysphagia. (5) DVT prophylaxis Comment: - SQ heparin. (6) DNR (do not resuscitate) Status and Disposition: Inpatient. Patient from [place], question how much longer he will be able to remain independent given very poor functional status. nurses' registry director following. Hospice consult anticipated tomorrow.
[2016-10-08] MEDS ORDERED: PYRIDOSTIGMINE IM SCH (18:00)
[2016-10-08] MEDS: PYRIDOSTIGMINE IM SCH ×2 (18:50→21:49)
--- NOTE | 2016-10-08 23:20 | CONS ---
NEUROLOGY CONSULTATION: DATE OF CONSULT: 10/08/16 REQUESTING PROVIDER: TALI Nunes REASON FOR CONSULT: Dysphagia. 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 He reports that his difficulty swallowing has been ongoing for approximately 4 weeks, but became much more acute in the last 4 days prior to his admission. On his admission, he reported that he could not swallow his own saliva. In addition, he has had dysarthria as well as some ptosis. He denies any increased extremity weakness, though he feels generally weak. He denies any diplopia. He is not having any significant respiratory difficulties. He denies any difficulty chewing, though also has not been able to eat. He has had a significant weight loss. In the midst of his workup for his dysphagia, his swallow study demonstrated severe dysphagia with laryngeal aspiration with liquids and solids, but most marked with thin liquids. There was limited to no excursion of the epiglottis. He had prolonged oral phase of deglutition with solids and retained liquids and solids in the vallecula. He has expressed his desire for comfort and limited diagnostic workup, especially in cases where things would be invasive or uncomfortable. A Palliative Care consult has been requested. On my evaluation, he reports that he is significantly uncomfortable related to his dysphagia. PAST MEDICAL HISTORY: Hypertension, hyperlipidemia, widely metastatic prostate cancer to bone, peptic ulcer disease with GI bleeds in the past requiring blood transfusion. HOME MEDICATIONS: 1. Chlorthalidone 50 mg. 2. Ferrous sulfate 325 mg. 3. Calcium with vitamin D. 4. Omeprazole 20 mg daily. ALLERGIES: No known drug allergies. FAMILY HISTORY: Noncontributory at this time. SOCIAL HISTORY: He denies tobacco, alcohol, or drug use. He is with 4 children. REVIEW OF SYSTEMS: As per the HPI, otherwise negative. PHYSICAL EXAM: Vital Signs: Temperature 98.3, blood pressure 158/56, heart rate 99, oxygen saturation 99% on room air. On general examination, he is a tall, cachectic-appearing man, in no acute distress. His heart is in a regular rate and rhythm with no murmurs, rubs, or gallops. Lungs are clear to auscultation bilaterally. On neurologic examination, he is fully alert and awake. He is oriented. His speech is dysarthric and significantly difficult to understand. He sounds to have pooled secretions in his posterior pharynx. On cranial nerve testing, pupils are equal, round, and reactive from 2.5 to 2 mm. Versions are full without nystagmus or diplopia. There is somewhat variable right ptosis, which partially covers the pupil. This is not clearly fatigable with sustained upgaze. He has somewhat weak eye closure and also weak cheek puff. It is difficult for him to press his tongue against the inside of his cheek against the examiner's finger. He may also have some neck flexor weakness, but he is also limited by bone pain. His palate does elevate symmetrically. On motor examination, he has normal tone with reduced bulk in the upper and lower extremities. His strength is full in the upper and lower extremities. Sensation is intact to light touch. There is no ataxia on finger-to- nose testing. DTRs are 2+ UE and knees. DIAGNOSTIC STUDIES/LAB DATA: Chemistry panel is notable for a slightly elevated anion gap of 12 and low CO2 of 18, glucose was 112, and calcium is 8.4. On admission, his alkaline phosphatase was elevated at 346 and albumin is low at 3.0. TSH is normal at 4.12. CBC shows an elevated white count of 11.4, hematocrit of 31, hemoglobin of 9.2, and platelets of 768. He underwent brain MRI scan, which showed diffuse involutional change and some scattered areas of elevated T2/FLAIR signal in the periventricular and subcortical white matter. There was also evidence of osteoblastic metastatic disease to the cervical spine, which was then further evaluated with a CT of the cervical spine for investigation into whether there was any mass effect on the pharynx. This showed again diffuse sclerosis consistent with diffuse osteoblastic metastatic disease as well as degenerative disk disease and osteoarthritis, but no impression upon the posterior pharynx. In addition, no fluid collection or significant lymphadenopathy was seen. IMPRESSION: Miah San is an 86-year-old man with metastatic prostate cancer , who presented to the emergency department with acute exacerbation of subacute dysphagia. He has undergone a Speech and Swallow evaluation, which has made the recommendation for n.p.o. status, but he has expressed the desire to eat for comfort knowing the risk of aspiration. I am asked to evaluate for a possible etiology of his dysphagia. I discussed with the patient that possibilities would include myasthenia gravis, especially given the presence of ptosis, weak eye closure, and lower facial weakness in addition to probable neck weakness, versus a possible myopathy. MRI did not show a stroke to explain his dysphagia, or other REED PRESS FEEDER process, and the pattern of his weakness does not fit with this anyway. The patient wishes to undergo limited diagnostic workup, but was amenable to testing for acetylcholine receptor antibodies in the serum. We discussed empiric symptomatic treatment with pyridostigmine and he was in favor of this, but given his n.p.o. status, this will need to be delivered either IM or IV. I spoke with the pharmacist and have entered an order for pyridostigmine 2 mg IM to be given every 3 hours with a hold for any difficulty managing secretions. We further discussed that treatments involved in myasthenia gravis may include steroids and IVIG. Given the history of peptic ulcer disease, he indicated he would not consent to steroids. We could consider IVIG if he has a response to the pyridostigmine or if his antibodies come back positive. He is not interested in undergoing repetitive nerve stimulation given the discomfort associated with this test. Thank you for this consultation. I will follow the patient along with you. [id number]/[facility] #: [id number] THIERRY
--- NOTE | 2016-10-09 00:02 | CONS ---
MEDICAL ONCOLOGY CONSULTATION NOTE: DATE OF CONSULT: 10/08/16 REASON FOR CONSULT: Prostate cancer. 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 He has a history of prostate cancer, which was originally discovered with an elevated PSA and a prostate nodule in 1995. 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 He then underwent a radical prostatectomy and lymph node dissection with Dr. Isidro Kern. The prostate cancer was found to be confined to the prostate and lymph nodes were negative as were seminal vesicles. Over time, his PSA did start to rise. He reports he has had radiation therapy to the prostate bed at some point in the distant past. He also reports having received hormonal therapy and what he describes as chemotherapy at some point. PSA had been undetectable for a period of time after prostatectomy, then significantly elevated levels for a post prostatectomy patient going all the way back to approximately 2005. He has been treated most through [facility]. PSA was approximately 14 three years ago and he reports over the past 3 years it has risen to a level of approximately 400. It sounds as though recently he may have been treated with Casodex. It is unclear whether he has received any more aggressive therapy than just Lupron and Casodex. As noted above, he does report having received chemo, but it is unclear what this would have been or when. He is not remembering exact details. He reports that over the past year, he has lost approximately 45 pounds including 15 pounds in the last 2 months. Over the past 2 months, he has also developed marked increased difficulty with swallowing to the point where he is having difficulty swallowing any liquids or even his own saliva. He denies any nausea or vomiting or any abdominal pain or discomfort or any changes in bowel habits. Since in the hospital, he has had a workup that has included a brain MRI looking for the source of the swallowing difficulties. This revealed diffuse involutional changes with multiple foci of elevated T2/FLAIR signal, which are nonspecific, most likely related to small vessel ischemia and less likely demyelinating disease. There is no evidence for any metastatic disease to the brain, although osteoblastic metastatic disease is noted to the cervical spine. CT of the cervical spine was performed on 10/07/16 and is reviewed. This reveals diffuse involvement with sclerotic changes throughout the cervical spine. In addition, there is multilevel neuroforaminal narrowing and narrowing of the central canal at C5-6 and C6-7. Videofluoroscopy was performed on as well. This revealed laryngeal aspiration with liquids and solids, most marked with thin liquids. He is currently undergoing a Speech Therapy evaluation in an attempt to improve his swallowing. PAST MEDICAL HISTORY: Otherwise significant for GI bleed earlier this year, peptic ulcer disease, hyperlipidemia, hypertension. MEDICATIONS AT THE TIME OF ADMISSION: Included: 1. Chlorthalidone 50 mg daily. 2. Ferrous sulfate 325 daily. 3. Calcium. 4. Vitamin D. 5. Omeprazole 20 mg daily. ALLERGIES: None. FAMILY HISTORY: Two brothers with prostate cancer. One of them also had colon cancer. Younger brother with prostate cancer in his early 50s. SOCIAL HISTORY: The patient has typically lived with his , although his has currently been in a assisted for approximately a month. He has been living alone. It is unclear whether he would be able to continue this or not. 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 He has 4 children. He is not a smoker or drinker. REVIEW OF SYSTEMS: Weight loss marked as discussed above, approximately 45 pounds over the past year and 15 pounds in the last 2 months. Appetite poor. Marked difficulty with swallowing. Aspiration with swallowing either liquids or solids. Denies any shortness of breath, chest pain, or palpitations. Denies any significant abdominal pain. Denies any significant arthritic or bony complaints. PHYSICAL EXAMINATION: Vitals Signs: Stable. Lungs: Clear. Heart: Regular rate and rhythm without murmurs, rubs or gallops. Abdomen: Normoactive bowel sounds. No masses, organomegaly or tenderness. Extremities: No edema. IMPRESSION: 1. An 86-year-old male with marked dysphagia. It appears as though he would not be able to have any significant swallowing function in the future. Etiology is not established andit does not sound as though if there is any reversible etiology. I discussed with him that he could receive nutrition through a PEG tube in an attempt to maintain nutrition and increased weight. Alternatively, he can elect to let nature take it course and continue to decline from a nutritional standpoint. 2. Prostate cancer. If his nutrition does not improve then treating his prostate cancer will have no utility. He has marked bony metastasis and elevated PSA, but no role for treatment prostate cancer in the setting of continued nutritional and overall functional decline. If he were to will elect to treat the nutritional decline he could then have t therapy for prostate cancer which could include enzalutamide. This is an oral medication, which could drop his PSA, stabilize his bone disease and potentially help him to live extra 1 to 2 years. He is clearly not a candidate for chemotherapy or other more aggressive therapies for his prostate cancer. He has recently been receiving Lupron shots every 3 months through the [facility] [place]. If he would elect to not treat the swallowing difficulties, I would recommend that he stop the Lupron as well. After prolonged discussion with the patient, he has elected to not receive a PEG tube or other means of nutrition and to allow himself to continue to decline from nutritional status. I believe that his life expectancy doing so would be extremely short, without oral intake of any significant amount. It is likely that he would continue to decline with continued weight loss and nutritional complications within the next 1 to 2 months or less. If this is the course that he decides upon, then a hospice consultation would certainly be in order. [id number]/[facility] #: [id number] MTDD
[2016-10-09] MEDS: PYRIDOSTIGMINE IM SCH ×8 (00:10→21:16)
[2016-10-09] MEDS: NS 0.9% 1000 ML* 1,000 ML IV SCH ×3 (00:41→18:08)
[2016-10-09] MEDS: Heparin VIAL(*) 5000 UNITS/ML VIAL (FIVE THOUSAND) SUBCUT SCH ×3 (06:08→21:16)
--- NOTE | 2016-10-09 07:59 | PN ---
Subjective Date of Service: 10/09/16 Interval History: Mr. San states that he is feeling better today. He feels that his phonation and his swallowing have improved with initiation of treatment for myasthenia gravis. He denies chest pain, SOB, nausea or abdominal pain. Objective Active Medications: Acetaminophen (Tylenol Adult Liq*) 650 mg PO Q6H PRN Ferrous Sulfate (Ferrous Sulfate Tab*) 325 mg PO DAILY [facility] Heparin Sodium (Porcine) (Heparin Vial(*)) 5,000 units SUBCUT Q8HR [facility] Sodium Chloride (Ns 0.9% 1000 Ml*) 1,000 mls @ 125 mls/hr IV PER RATE [facility] Morphine Sulfate (Morphine Inj (Syringe)*) 4 mg IV Q2H PRN Omeprazole (Prilosec Cap*) 20 mg PO 0730,1630 [facility] Ondansetron HCl (Zofran Inj*) 4 mg IV Q4H PRN Pyridostigmine [place] (Regonol*) 2 mg IM Q3HR [facility] Vital Signs 10/08/16 10/08/16 10/08/16 08:17 10:14 12:20 Temperature 98.2 F 97.5 F 97.3 F Pulse Rate 90 87 94 Respiratory 16 16 16 Rate Blood Pressure 116/47 113/53 152/57 (mmHg) O2 Sat by Pulse 98 100 99 Oximetry 10/08/16 10/08/16 10/08/16 15:11 16:45 17:45 Temperature 98.3 F Pulse Rate 99 Respiratory 18 16 16 Rate Blood Pressure 158/56 (mmHg) O2 Sat by Pulse 99 Oximetry 10/08/16 10/08/16 10/08/16 18:47 19:17 19:47 Temperature 97.5 F Pulse Rate 93 Respiratory 16 16 18 Rate Blood Pressure 107/45 (mmHg) O2 Sat by Pulse 96 Oximetry 10/08/16 10/08/16 10/09/16 20:00 23:21 03:09 Temperature 97.2 F 98.9 F Pulse Rate 87 80 Respiratory 18 16 20 Rate Blood Pressure 118/56 114/50 (mmHg) O2 Sat by Pulse 97 97 Oximetry 10/09/16 07:22 Temperature 98.0 F Pulse Rate 91 Respiratory 15 Rate Blood Pressure 113/44 (mmHg) O2 Sat by Pulse 100 Oximetry Oxygen Devices in Use Now: None Appearance: Male sitting up in bed in NAD Eyes: No Scleral Icterus Ears/Nose/Mouth/Throat: Mucous Membranes Moist Neck: Trachea Midline Respiratory: Symmetrical Chest Expansion and Respiratory Effort, Clear to Auscultation Cardiovascular: NL Sounds; No Murmurs; No JVD, No Edema Abdominal: NL Sounds; No Tenderness; No Distention Lymphatic: No Cervical Adenopathy Extremities: No Edema Skin: No Rash or Ulcers Neurological: Alert and Oriented x 3, NL Muscle Strength and Tone, - - Improved speech clarity Nutrition: Taking PO's Result Diagrams: 10/08/16 05:30 10/08/16 05:27 Additional Lab and Data: . Diagnostic Imaging: XR esophagus: no definite mass. CXR: no active cardiopulmonary disease, but multiple sclerotic lesions possibly member services representative of bony mets. MRI Brain: No evidence of metastatic lesion to the brain. Cervical CT: Diffuse osteoblastic metastatic disease. Assess/Plan/Problems-Billing Assessment: Mr. San is an 86 yo male with PMH of HTN, HLD prior GI bleed and known diffuse metastatic prostate CA currently not undergoing treatment who presents with inability to swallow and rapid weight loss. - Patient Problems (1) Prostate CA Comment: - Diagnosed ~20 years ago. Has undergone treatment for metastatic skeletal lesions but has opted to forego further treatment. Requesting records from [place] to determine exact course of treatment. - CT cervical spine demonstrates diffuse metastatic involvement. Bone scan and CT pelvis records from [facility] found that all of his skeletal metastasis have increased despite treatment. - Appreciate Onc consult, no palliative treatment options given dysphagia and overall very poor functional status. If dysphagia can be reversed and he can regain weight, Dr. Hernandez has offered possibility of initiating chemotherapy. - Hospice consult pending. (2) Dysphagia Comment: - Appreciate neuro consult, Dr. Nunez questions possibility of myasthenia gravis and has started empiric pyridostigmine. - Patient reports improvement in swallow overnight, have asked speech therapy to re-eval. - Barium swallow had previously demonstrated aspiration of liquids and solids. - Patient does not want to pursue PEG tube placement. (3) Malnutrition Comment: - Severe protein calorie malnutrition. ~25% loss in body weight in ~6months. Appears clinically cachectic with severe muscle wasting and loss of SQ fat. - Suspect related to malignancy and poor oral intake. (4) HTN (hypertension) Comment: - BP well controlled. - Unable to tolerate oral meds due to dysphagia. (5) DVT prophylaxis Comment: - SQ heparin. (6) DNR (do not resuscitate) Status and Disposition: Inpatient. Patient from [place], question how much longer he will be able to remain independent given very poor functional status. human resource internship following. Hospice consult pending.
[2016-10-09] MEDS: Omeprazole CAP* 20 MG PO SCH ×2 (09:02→15:09)
[2016-10-09] MEDS: Ferrous Sulfate TAB* 325 MG PO SCH (09:02)
[2016-10-09] MEDS: Morphine INJ* 4 MG/ML 1 ML SYRINGE IV PRN ×2 (15:04→21:39)
[2016-10-10] MEDS: Morphine INJ* 4 MG/ML 1 ML SYRINGE IV PRN ×3 (00:16→06:16)
[2016-10-10] MEDS: PYRIDOSTIGMINE IM SCH ×8 (00:17→20:08)
[2016-10-10] MEDS: NS 0.9% 1000 ML* 1,000 ML IV SCH (02:10)
--- NOTE | 2016-10-10 03:29 | CONS ---
CC: Parker Baxter MD * PALLIATIVE CARE CONSULTATION: DATE OF CONSULT: 10/09/16 PRIMARY CARE PHYSICIAN: Parker Baxter MD REFERRING PHYSICIAN: TALI Nunes HOSPITAL COURSE: This is an 86-year-old male with a past medical history of prostate cancer, on Lupron and history of GI bleed, who presented to the emergency room with trouble swallowing. The patient reports over the past year he lost about 45 pounds and more dramatically over the past 2 months, 15 pounds and has had a decline in his ability to swallow and now he is having difficulty swallowing liquids and his own saliva. Denies any issues with his nausea, vomiting, abdominal pain, no change in his bowel movements. He has a history of prostate cancer status post prostatectomy, Lupron. On admission, the patient had a videofluoroscopic swallow that showed laryngeal aspiration with liquids and solids. 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 His chest x-ray on admission showed multiple sclerotic lesions in the bone, cervical spine CT showed diffuse sclerosis of the visualized portion of the skull consistent with osteoblastic metastatic disease, moderate narrowing of the central canal, 1.8 cm left thyroid nodule. Neurology and oncology were involved. Neurology did feel that he had some symptoms of myasthenia gravis with ptosis and has dysphagia and started him on empiric symptomatic treatment with pyridostigmine and put in for a repeat video swallow eval for today, the results are not back yet, although it has been noted by family and Dr. Nunez that he has improvement in his vocal cord function and the patient feels that he is able to swallow better. Oncology, Dr. Hernandez weighed in on the patient, discussing that this is likely metastatic prostate cancer and with his inability to swallow to keep up the nutritional needs that he is not a candidate for treatment unless he wishes to have a PEG tube. The patient does not want to have a PEG tube, he tells me that he would like to be comfortable and not have any further significant treatment. The patient is living in [facility], just moved to an apartment. His was just recently moved to [facility]. He is wheelchair bound and is able to transfer himself at home and has been doing relatively well. The 4 children, who are his healthcare proxies and his daughter who is at the bedside with her are concerned because they do not live locally, that he is very independent and unwilling to recognize that he may need more help that he has. The patient at this time is denying any pain, is denying any shortness of breath, no nausea or vomiting. He has been just eating some ice cream, otherwise remaining review of systems is negative. We did discuss his MOLST form, which has been confirmed DNR/DNI, comfort measures. PAST MEDICAL HISTORY: 1. History of GI bleed. 2. Peptic ulcer disease. 3. Hyperlipidemia. 4. Hypertension. 5. History of prostate cancer, status post prostatectomy and chemotherapy. MEDICATIONS: 1. Tylenol 650 mg every 6 hours as needed. 2. Ferrous sulfate 325 mg daily. 3. Heparin 5000 units subcu t.i.d. 4. Morphine 4 mg IV q.2 hours as needed. 5. Normal saline 125 cc an hour. 6. Omeprazole 20 mg b.i.d. 7. Zofran 4 mg IV q.4 hours as needed. 8. Pyridostigmine 2 mg IM q.3 hours. ALLERGIES: No known drug allergies. SOCIAL HISTORY: As mentioned, the patient is living at home at [facility]. No history of tobacco, alcohol or illicit drug use. 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 He is . His has currently just moved to [facility]. He has 4 children, he is planning to fill up healthcare proxy form. His primary healthcare proxy is his son, Eb. His secondary is "Sandra" and his other remaining children. As mentioned in the MOLST form, he is DNR/DNI. REVIEW OF SYSTEMS: A 14-point review of systems was completed with the patient. All pertinent positives and negatives mentioned in the HPI, otherwise are negative. FAMILY HISTORY: Reviewed, noncontributory. PHYSICAL EXAM: Vital Signs: Temp is 97.5, pulse rate is 88, respiratory rate 18, oxygen saturation 100% on room air, blood pressure 100/63. General: No acute distress, pale, cachectic male with his daughter and son-in-law at the bedside. Cardiac: Regular rate and rhythm with ectopic beats. Respiratory: Diminished breath sounds. No wheezes, rhonchi, or rales. Abdomen: Soft, nontender, and nondistended. Extremities: Without clubbing, cyanosis or edema. Head: Normocephalic. Pupils are equal and reactive. Neck: Supple, no lymphadenopathy. Oropharynx: Mucous membranes are moist. Neurologic: No gross focal neurologic deficits. Alert and oriented x3. DIAGNOSTIC STUDIES/LAB DATA: White count 11.4, hemoglobin 9.2, hematocrit 31, and platelets 768. Sodium 135, potassium 3.9, chloride 105, bicarb 18, BUN 16, creatinine 0.75, albumin is 3.0. ASSESSMENT: This is an 86-year-old male who presents with weight loss and dysphagia found to have widely metastatic prostate cancer and a possibility of myasthenia gravis. He has improved somewhat with empiric treatment of pyridostigmine. Dr. Nunez is going to look into further treatment regarding his presumed diagnosis regardless with his metastatic prostate cancer, his malnutrition with dysphagia, he is eligible for hospice based on these diagnoses. The patient is adamant about trying to get back to [place] and seeing how he does, the family who do not live locally are visiting currently are concerned about his wellbeing at home. I discussed having PT evaluate him to make sure he is safe for transfer and hiring private services to help him to see how he does and if he does okay, he can stay at home. And if there is concern for higher level of care, he can transition to the hospice residence. The patient is agreeable to this as well as the family. I discussed my recommendations with Treasure Ledesma. Thank you for this consultation. I will follow along with you. PATIENT TIME: Greater than 100 minutes spent doing the consultation, more than half the time spent in direct patient contact. [id number]/[facility] #: [id number] THIERRY
[2016-10-10] MEDS: Heparin VIAL(*) 5000 UNITS/ML VIAL (FIVE THOUSAND) SUBCUT SCH ×3 (06:15→21:20)
--- NOTE | 2016-10-10 08:45 | PN ---
Subjective Date of Service: 10/10/16 Interval History: Mr. San is intermittently confused and hallucinating. He denies specific complaint at the time of my examination. Nursing staff note that he has had periods of shortness of breath and anxiety that have been helped with morphine. He feels that perhaps his speech and swallow are better. He denies chest pain , SOB, nausea, or abdominal pain. Objective Active Medications: Acetaminophen (Tylenol Adult Liq*) 650 mg PO Q6H PRN Ferrous Sulfate (Ferrous Sulfate Tab*) 325 mg PO DAILY [facility] Heparin Sodium (Porcine) (Heparin Vial(*)) 5,000 units SUBCUT Q8HR [facility] Sodium Chloride (Ns 0.9% 1000 Ml*) 1,000 mls @ 125 mls/hr IV PER RATE [facility] Morphine Sulfate (Morphine Inj (Syringe)*) 4 mg IV Q2H PRNmg Omeprazole (Prilosec Cap*) 20 mg PO 0730,1630 [facility] Ondansetron HCl (Zofran Inj*) 4 mg IV Q4H PRN Pyridostigmine [place] (Regonol*) 2 mg IM Q3HR [facility] Vital Signs 10/09/16 10/09/16 10/09/16 11:21 15:04 16:02 Temperature 98.0 F 97.5 F Pulse Rate 85 164 Respiratory 16 24 23 Rate Blood Pressure 115/46 100/63 (mmHg) O2 Sat by Pulse 99 100 Oximetry 10/09/16 10/09/16 10/09/16 16:04 16:24 19:40 Temperature 98.2 F Pulse Rate 88 122 Respiratory 18 Rate Blood Pressure 116/67 (mmHg) O2 Sat by Pulse 98 Oximetry 10/09/16 10/09/16 10/09/16 20:00 21:39 22:39 Temperature Pulse Rate 82 Respiratory 18 20 16 Rate Blood Pressure (mmHg) O2 Sat by Pulse Oximetry 10/09/16 10/10/16 10/10/16 23:23 00:16 01:16 Temperature 97.6 F Pulse Rate 90 Respiratory 20 18 16 Rate Blood Pressure 122/57 (mmHg) O2 Sat by Pulse 100 Oximetry 10/10/16 10/10/16 10/10/16 03:05 03:33 03:35 Temperature 98.2 F Pulse Rate 145 95 Respiratory 18 20 Rate Blood Pressure 123/56 (mmHg) O2 Sat by Pulse 100 Oximetry 10/10/16 10/10/16 10/10/16 04:05 06:16 07:22 Temperature 97.6 F Pulse Rate 86 Respiratory 16 16 15 Rate Blood Pressure 95/47 (mmHg) O2 Sat by Pulse 100 Oximetry Oxygen Devices in Use Now: None Appearance: Cachectic elderly male sitting up in chair in NAD Eyes: No Scleral Icterus Ears/Nose/Mouth/Throat: Mucous Membranes Moist Neck: Trachea Midline Respiratory: Symmetrical Chest Expansion and Respiratory Effort, Clear to Auscultation Cardiovascular: NL Sounds; No Murmurs; No JVD, No Edema Abdominal: NL Sounds; No Tenderness; No Distention Lymphatic: No Cervical Adenopathy Extremities: No Edema Skin: No Rash or Ulcers Neurological: Alert and Oriented x 3, NL Muscle Strength and Tone, - - Voice muffled, speech unclear at times, drooling noted. Generalized weakness noted. Nutrition: Taking PO's Result Diagrams: 10/08/16 05:30 10/08/16 05:27 Additional Lab and Data: . Diagnostic Imaging: XR esophagus: no definite mass. CXR: no active cardiopulmonary disease, but multiple sclerotic lesions possibly shared services representative of bony mets. MRI Brain: No evidence of metastatic lesion to the brain. Cervical CT: Diffuse osteoblastic metastatic disease. Assess/Plan/Problems-Billing Assessment: Mr. San is an 86 yo male with PMH of HTN, HLD, prior GI bleed and known diffuse metastatic prostate CA currently not undergoing treatment who presents with inability to swallow and rapid weight loss with question of myasthenia gravis. - Patient Problems (1) Prostate CA Comment: - Diagnosed ~20 years ago. Has undergone treatment for metastatic skeletal lesions but has opted to forego further treatment- records from [place] about exact treatment course available in chart. - CT cervical spine demonstrates diffuse metastatic involvement. Bone scan and [facility] pelvis records from [facility] found that all of his skeletal metastasis have increased despite treatment. - Appreciate Onc consult, no palliative treatment radiation options given dysphagia and overall very poor functional status. - Hospice consult appreciated, patient is appropriate for hospice but he and family continue to weigh options. (2) Dysphagia Comment: - Appreciate neuro consult, Dr. Nunez questions possibility of myasthenia gravis and has started empiric pyridostigmine. IVIG is now being added. MG antibodies test will not likely be resulted until 10/14 or 10/15/16. - Patient feels that perhaps he is getting better but repeat barium swallow confirms that he continues to silently aspirate on all food and liquid consistencies. - Patient does not want to pursue PEG tube placement. (3) Malnutrition Comment: - Severe protein calorie malnutrition. ~25% loss in body weight in ~6months. Appears clinically cachectic with severe muscle wasting and loss of SQ fat. - Suspect related to malignancy and poor oral intake. (4) HTN (hypertension) Comment: - BP well controlled. - Unable to tolerate oral meds due to dysphagia. (5) DVT prophylaxis Comment: - SQ heparin. (6) DNR (do not resuscitate) Status and Disposition: Inpatient. Patient from [place], but no longer able to live independently. Patient and family considering options of 24 hr home care vs hospice residence.
[2016-10-10] MEDS: Ferrous Sulfate TAB* 325 MG PO SCH (09:18)
[2016-10-10] MEDS: Omeprazole CAP* 20 MG PO SCH (09:18)
--- NOTE | 2016-10-10 11:27 | RAD ---
INDICATION: Significant interval improvement in clinical swallowing and speech compared with October 07, 2016 following treatment for newly diagnosed myasthenia gravis. COMPARISON: October 07, 2016 TECHNIQUE: Videofluoroscopy swallowing function exam performed in conjunction with speech pathology. Patient seated in a [place] chair and viewed in the lateral plane. The patient swallowed various consistencies of liquids and solid foodstuff coated with barium. 2.2 minutes fluoroscopy. REPORT AND IMPRESSION: Persistent small volume of aspiration visualized with various consistency of liquids. No laryngeal penetration or aspiration observed with various solid consistencies. Continued retained liquid and solid food stuff at the vallecula. Improved movement of the epiglottis with deglutition compared with the previous exam. Refer to speech pathology report for further assessment. CPT II: CPT II Codes: 6045F
--- NOTE | 2016-10-10 12:10 | PN ---
PROGRESS NOTE: DATE OF FOLLOWUP: 10/09/16 HISTORY: Overnight, the patient was treated q.3 hours with pyridostigmine IM. He indicates today that he feels much better. His swallowing has improved and he says he was able to drink an Ensure as well as some orange juice this morning. In addition, his speech is much more understandable. His family is present and agrees that he is much better than yesterday or the day prior. He has had some increased bowel movements and some increased lacrimation, but otherwise has tolerated pyridostigmine well. He went down for a repeat video swallow today but this was not completed, I believe, due to physician availability. We discussed more long- term treatments for presumed myasthenia gravis including IVIG and prednisone. MEDICATIONS: Reviewed and include: 1. Pyridostigmine 2 mg IM q.3 hours. 2. IV fluids at 125 mL per hour. 3. Morphine 4 mg IV q.2 hours p.r.n. pain. 4. Ferrous sulfate. 5. Tylenol. PHYSICAL EXAMINATION: Vital Signs: Temperature 98, blood pressure 115/46, heart rate 85, oxygen saturation 99% on room air. On general observation, the patient was sitting up at the chair by his bedside, in no acute distress. His speech was still occasionally garbled, but much more understandable than yesterday. He did appear mildly short of breath. He did not sound to have pooled secretions as he did yesterday but his position today is upright rather than lying back. He still has some mild right ptosis, which is somewhat variable. His versions are full without nystagmus or diplopia. The ptosis is not clearly fatigable. On observation, he had full power in his extremities. LABORATORY DATA: Myasthenia gravis panel has been collected and is pending. IMPRESSION: Miah San is an 86-year-old man with prostate cancer widely metastatic to bone, who presented to the emergency department with acute exacerbation of subacute dysphagia over approximately a month. He has had more marked weight loss in the past 2 months presumably related to his dysphagia. He seems to have had a subjective response to pyridostigmine administration and his speech sounds much better today, though I do note that he is in upright position rather than reclined, which could influence this. He also feels, however, that he is swallowing better and able to drink liquids, which he was not able to do yesterday. A more objective assessment of his swallowing function is pending. I discussed that the blood work will take several days to return and given his response to pyridostigmine, we could proceed with empiric treatment with IVIG for 5 days for presumed myasthenia gravis. I discussed potential complications including thrombosis, infusion reaction such as flushing and headache, as well as more serious but rare reactions such as anaphylaxis. Again, he is not a good candidate for prednisone secondary to his age as well as his history of peptic ulcer disease requiring transfusions. He indicated that he would like Dr. Hernandez's impression and opinion as well in light of his cancer if he were to proceed with IVIG. In addition, I would like to speak with Dr. Hernandez to get his assistance on whether the patient's cancer might put him at greater risk for thrombotic complications of IVIG, particularly in light of his thrombophilia with the platelet count of 768 as of yesterday. He is also going to be getting a Palliative Care consult as soon. Further treatment will be depending on the above input. For now, he will continue with pyridostigmine IM and if his swallow evaluation indicates that he is safe to take p.o., then we can switch this over. [id number]/[facility] #: [id number] THIERRY
[2016-10-10] MEDS: IMMUNE GLOBULN IV SCH (17:58)
[2016-10-10] MEDS: [UNRECOGNIZED DRUG - OTHER] IV SCH (17:58)
[2016-10-10] MEDS: Morphine ORAL CONCENTRATE* 5 MG/0.25 ML ORAL.SYRIN SL PRN ×2 (19:22→21:20)
[2016-10-11] MEDS: Morphine ORAL CONCENTRATE* 5 MG/0.25 ML ORAL.SYRIN SL PRN ×4 (00:39→21:00)
[2016-10-11] MEDS: PYRIDOSTIGMINE IM SCH ×8 (02:45→20:59)
--- NOTE | 2016-10-11 03:03 | PN ---
PROGRESS NOTE: DATE OF FOLLOWUP: 10/10/16 HISTORY: Today, the patient has been having some hallucinations. He thought he saw smoke coming from the computer and told the nurse that he thought his room was on fire. He is aware of these hallucinations. I note that he has been receiving morphine for shortness of breath and last received it at 6:16 this morning. He also continues to receive pyridostigmine. He underwent a repeat video swallow evaluation today, which demonstrated minimal if any objective improvement in his swallowing. Despite that, he continues to feel that he is handling liquids and his secretions better. He ate ice cream recently. Earlier, he thought his speech was more slurred again, but currently he is quite understandable and he is positioned reclined in bed, which is the same position he was in 2 days ago when I first evaluated him and could barely understand him. We discussed the diagnostic testing that is pending as well as the option of empiric treatment with IVIG. Furthermore, we discussed holding pyridostigmine temporarily to try to determine if he is indeed getting a benefit from it or if this is spontaneous fluctuations that we are seeing. MEDICATIONS: Medications were reviewed and include: 1. Pyridostigmine 2 mg IM q.3 hours. 2. Zofran 4 mg q.4 hours p.r.n. 3. Morphine, which has recently been changed to sublingual q.1 hour p.r.n. PHYSICAL EXAMINATION: Vital Signs: Temperature 97.6, blood pressure 95/47, heart rate 86, oxygen saturation 100% on room air. A formal examination was not completed today. On observation, his speech is mildly slurred. He has some stridor sound to his speech and becomes short of breath when speaking. His ptosis on the right is not as noticeable as previous. He is lying on his right side, resting in his bed and was sleeping when I entered the room. DATA: His barium swallow showed persistent small volume of aspiration visualized with various consistencies of liquids. No laryngeal penetration or aspiration observed with various solid consistencies. Continue retained liquid and solid food stuff at the vallecula. Improved movement of the epiglottis with deglutition compared with the previous exam. Refer to speech pathology report for further assessment. This is per the radiologist. The speech pathologist's report indicates that he has severe oropharyngeal dysphagia for thin, nectar thick, honey thick liquids, pureed/pudding solids and soft solid consistencies characterized by elaborate and efficient mastication, reduced lingual strength and coordination, poor lingual base strength (and likely sensation); significantly delayed initiation of pharyngeal swallow. There is also silent deep penetration and/or aspiration with all consistencies resulting in significant base of tongue, vallecular, piriform sinuses, posterior pharyngeal wall residuals. Recommendation was made to continue with n.p.o. status. Per Treasure Ledesma, who spoke with the speech pathologist, she did not feel there was any significant improvement objectively. IMPRESSION: Miah San is an 86-year-old man with metastatic prostate cancer , who presented with an acute exacerbation of subacute dysphagia, which has resulted in significant weight loss over the past 2 months. In addition to dysphagia, he exhibited significant dysarthria as well as ptosis and facial weakness on exam. He also has today some evidence of respiratory distress as well. He has questionably had some improvement at least subjectively and in terms of his speech with treatment with pyridostigmine. Myasthenia gravis panel is pending and will likely not be back until early next week. The patient did not wish to undergo repetitive nerve stimulation for possible confirmation of the potential diagnosis of myasthenia gravis. His code status is DNR/DNI. He does wish to proceed with a trial of IVIG at this time to see if his swallowing could improve to the point where he could improve his nutrition and possibly receive palliative chemotherapy, which has been discussed with him by Dr. Hernandez. He has also had a palliative care consult and hospice has been offered to him. We discussed the risks and benefits of IVIG and he is aware that it can take a week or two to see the effects of the medication. He would like to proceed at this time, so he will be treated with a total dose of 2 g/kg divided over 5 days. He should be hydrated during this process to reduce the possible risk of adverse effects. Specifically, we discussed risks of renal dysfunction, thrombotic events, flushing, headache and rarely anaphylaxis. In addition, I will have the pyridostigmine held for several doses and if he demonstrates worsening in terms of his speech, subjective swallowing or breathing, we will reinstitute the medication. More than 50% of this 15-minute encounter was spent in counseling regarding treatment options and potential side effects as well as potential outcomes. [id number]/[facility] #: [id number] [facility]
[2016-10-11] MEDS: Heparin VIAL(*) 5000 UNITS/ML VIAL (FIVE THOUSAND) SUBCUT SCH ×3 (05:07→20:59)
--- NOTE | 2016-10-11 07:40 | PN ---
Subjective Date of Service: 10/11/16 Interval History: Mr. San reports that he feels a bit better today. He denies chest pain, SOB, nausea, or abdominal pain. Objective Active Medications: Acetaminophen (Tylenol Adult Liq*) 650 mg PO Q6H PRN Heparin Sodium (Porcine) (Heparin Vial(*)) 5,000 units SUBCUT Q8HR ROGELIO Immune Globulin 5 gm/ Immune (Globulin 20 gm/ IV Solution) 500 mls @ 0 mls/hr IV QPM ROGELIO; Per Protocol Morphine Sulfate (Morphine Oral Concentrate*) 2.5 mg SL Q1H PRN Ondansetron HCl (Zofran Inj*) 4 mg IV Q4H PRN Pyridostigmine [place] (Regonol*) 2 mg IM Q3HR [facility] Vital Signs 10/10/16 10/10/16 10/10/16 08:00 11:03 15:27 Temperature Pulse Rate 88 Respiratory 16 15 Rate Blood Pressure 100/39 (mmHg) O2 Sat by Pulse 98 93 Oximetry 10/10/16 10/10/16 10/10/16 15:41 16:00 18:04 Temperature 98.0 F 98.7 F Pulse Rate 101 100 Respiratory 26 16 Rate Blood Pressure 117/43 120/51 (mmHg) O2 Sat by Pulse 100 98 99 Oximetry 10/10/16 10/10/16 10/10/16 18:25 18:34 18:58 Temperature 97.4 F 98.2 F 98.1 F Pulse Rate 99 99 105 Respiratory 18 18 23 Rate Blood Pressure 126/63 136/66 136/67 (mmHg) O2 Sat by Pulse 99 99 96 Oximetry 10/10/16 10/10/16 10/10/16 19:22 19:36 19:47 Temperature 98.4 F 99.4 F Pulse Rate 108 104 Respiratory 32 32 26 Rate Blood Pressure 147/75 128/53 (mmHg) O2 Sat by Pulse 98 98 Oximetry 10/10/16 10/10/16 10/10/16 20:25 20:59 21:17 Temperature 98.9 F 98.0 F Pulse Rate 105 99 Respiratory 24 28 28 Rate Blood Pressure 120/55 131/66 (mmHg) O2 Sat by Pulse 98 99 Oximetry 10/10/16 10/10/16 10/10/16 21:20 21:48 23:20 Temperature 98.3 F Pulse Rate 112 Respiratory 28 28 24 Rate Blood Pressure 140/62 (mmHg) O2 Sat by Pulse 100 Oximetry 10/10/16 10/11/16 10/11/16 23:40 00:00 00:39 Temperature 98.4 F Pulse Rate 99 Respiratory 16 28 Rate Blood Pressure 126/60 (mmHg) O2 Sat by Pulse 100 97 Oximetry 10/11/16 10/11/16 10/11/16 02:39 02:50 04:47 Temperature 98.6 F Pulse Rate 105 Respiratory 26 28 28 Rate Blood Pressure 131/46 (mmHg) O2 Sat by Pulse 99 Oximetry Oxygen Devices in Use Now: None Appearance: Cachectic elderly male sitting up in chair in NAD Eyes: No Scleral Icterus Ears/Nose/Mouth/Throat: Mucous Membranes Moist Neck: Trachea Midline Respiratory: Symmetrical Chest Expansion and Respiratory Effort, Clear to Auscultation Cardiovascular: NL Sounds; No Murmurs; No JVD, No Edema Abdominal: NL Sounds; No Tenderness; No Distention Lymphatic: No Cervical Adenopathy Extremities: No Edema Skin: No Rash or Ulcers Neurological: Alert and Oriented x 3, - - Cachectic with generalized weakness Result Diagrams: 10/08/16 05:30 10/11/16 09:25 Additional Lab and Data: . Diagnostic Imaging: XR esophagus: no definite mass. CXR: no active cardiopulmonary disease, but multiple sclerotic lesions possibly sales representative advertising of bony mets. MRI Brain: No evidence of metastatic lesion to the brain. Cervical CT: Diffuse osteoblastic metastatic disease. Assess/Plan/Problems-Billing Assessment: Mr. San is an 86 yo male with PMH of HTN, HLD, prior GI bleed and known diffuse metastatic prostate CA currently not undergoing treatment who presents with inability to swallow and rapid weight loss with question of myasthenia gravis. - Patient Problems (1) Prostate CA Comment: - Diagnosed ~20 years ago. Has undergone treatment for metastatic skeletal lesions but has opted to forego further treatment- records from [place] about exact treatment course available in chart. Dr. Hernandez did review these records and states that no further treatment options are available. - CT cervical spine demonstrates diffuse metastatic involvement. Bone scan and CT pelvis records from [facility] found that all of his skeletal metastasis have increased despite treatment. - Hospice consult appreciated, patient is appropriate for hospice but he and family continue to weigh options. (2) Dysphagia Comment: - Appreciate neuro consult, Dr. Nunez questions possibility of myasthenia gravis and has started empiric pyridostigmine and IVIG. MG antibodies test will not likely be resulted until 10/14 or 10/15/16. - Patient feels that perhaps he is getting better but repeat barium swallow confirms that he continues to silently aspirate on all food and liquid consistencies. - Patient does not want to pursue PEG tube placement. (3) SOB (shortness of breath) Comment: - Patient intermittently SOB though not hypoxic. - Suspect related to airway obstruction with weakness and laxity of upper airway. - Continue O2 and low dose morphine SL prn. (4) Malnutrition Comment: - Severe protein calorie malnutrition. ~25% loss in body weight in ~6months. Appears clinically cachectic with severe muscle wasting and loss of SQ fat. Prealbumin 8. - Suspect related to malignancy and poor oral intake. (5) HTN (hypertension) Comment: - BP well controlled. - Unable to tolerate oral meds due to dysphagia. (6) DVT prophylaxis Comment: - SQ heparin. (7) DNR (do not resuscitate) Status and Disposition: Inpatient. Patient from [place], but no longer able to live independently. Patient and family considering options of 24 hr home care vs hospice residence. Patient to remain inpatient at this point with plan for IV IG therapy for MG.
[2016-10-11 09:57] LABS: BUN/Creatinine Ratio 18.8 (8-20); Calcium 8.3 mg/dL (8.6-10.3); EGFR African American 117.3 (>60); EGFR Non-African American 91.2 (>60); Potassium 4.1 mmol/L (3.5-5.0)
--- NOTE | 2016-10-11 17:44 | PN ---
Progress Note - Progress Note Date of Service: 10/11/16 SOAP: Subjective: []No change. Still on oxygen and not eating well. Very weak. Acetaminophen (Tylenol Adult Liq*) 650 mg PO Q6H PRN PRN Reason: FEVER/PAIN Last Admin: 10/06/16 20:20 Dose: 650 mg Heparin Sodium (Porcine) (Heparin Vial(*)) 5,000 units SUBCUT Q8HR ROGELIO Last Admin: 10/11/16 14:55 Dose: 5,000 units Immune Globulin 5 gm/ Immune (Globulin 20 gm/ IV Solution) 500 mls @ 0 mls/hr IV QPM ROGELIO; Per Protocol PRN Reason: Protocol Stop: 10/14/16 18:01 Last Admin: 10/10/16 17:58 Dose: 35 mls/hr Morphine Sulfate (Morphine Oral Concentrate*) 2.5 mg SL Q1H PRN PRN Reason: PAIN Last Admin: 10/11/16 04:47 Dose: 2.5 mg Ondansetron HCl (Zofran Inj*) 4 mg IV Q4H PRN PRN Reason: NAUSEA Pyridostigmine [place] (Regonol*) 2 mg IM Q3HR ROGELIO Last Admin: 10/11/16 14:55 Dose: 2 mg Objective: [] Vital Signs Temp Pulse Resp BP Pulse Ox 97.6 F 86 20 114/49 91 10/11/16 16:10 10/11/16 16:10 10/11/16 16:10 10/11/16 16:10 10/11/16 16:10 HEENT: Mucosa dry,pale cechectic Decreased BS diffuse atrophy Assessment: []Chart reviewed and case discussed with Dr. Hernandez, Dr. San and then phone call to family. Plan: []No options available for treatment of the prostate cancer. Hospice is next step in care of disease. This is regardless of status of MG.
[2016-10-11] MEDS: IMMUNE GLOBULN IV SCH (17:47)
[2016-10-11] MEDS: [UNRECOGNIZED DRUG - OTHER] IV SCH (17:47)
[2016-10-12] MEDS: PYRIDOSTIGMINE IM SCH ×8 (00:19→21:07)
[2016-10-12] MEDS: Morphine ORAL CONCENTRATE* 5 MG/0.25 ML ORAL.SYRIN SL PRN ×2 (03:03→21:06)
[2016-10-12] MEDS: Heparin VIAL(*) 5000 UNITS/ML VIAL (FIVE THOUSAND) SUBCUT SCH ×3 (05:35→21:07)
--- NOTE | 2016-10-12 11:35 | PN ---
Subjective Date of Service: 10/12/16 Interval History: Mr. San states that he is much more relaxed now that he has made the decision to go to hospice. He denies complaint this morning including chest pain, SOB, nausea, or abdominal pain. Objective Active Medications: Acetaminophen (Tylenol Adult Liq*) 650 mg PO Q6H PRN Heparin Sodium (Porcine) (Heparin Vial(*)) 5,000 units SUBCUT Q8HR ROGELIO Immune Globulin 5 gm/ Immune (Globulin 20 gm/ IV Solution) 500 mls @ 0 mls/hr IV QPM ROGELIO; Per Protocol Morphine Sulfate (Morphine Oral Concentrate*) 2.5 mg SL Q1H PRN Ondansetron HCl (Zofran Inj*) 4 mg IV Q4H PRN Pyridostigmine [place] (Regonol*) 2 mg IM Q3HR ROGELIO Vital Signs 10/11/16 10/11/16 10/11/16 16:00 16:10 20:00 Temperature 97.6 F Pulse Rate 86 Respiratory 20 16 Rate Blood Pressure 114/49 (mmHg) O2 Sat by Pulse 98 91 Oximetry 10/11/16 10/11/16 10/11/16 20:20 21:00 23:00 Temperature 98.0 F Pulse Rate 92 Respiratory 22 20 20 Rate Blood Pressure 104/53 (mmHg) O2 Sat by Pulse 95 Oximetry 10/11/16 10/12/16 10/12/16 23:31 00:00 03:03 Temperature 98.5 F Pulse Rate 90 Respiratory 16 16 Rate Blood Pressure 125/45 (mmHg) O2 Sat by Pulse 100 95 Oximetry 10/12/16 10/12/16 10/12/16 04:02 05:03 07:36 Temperature 97.7 F Pulse Rate 89 89 Respiratory 16 16 18 Rate Blood Pressure 122/55 111/47 (mmHg) O2 Sat by Pulse 98 99 Oximetry 10/12/16 10/12/16 10/12/16 08:00 11:26 11:29 Temperature 97.5 F Pulse Rate 90 Respiratory 18 16 Rate Blood Pressure 115/50 (mmHg) O2 Sat by Pulse 99 100 99 Oximetry Oxygen Devices in Use Now: None Appearance: Cachectic elderly male lying in bed in NAD Eyes: No Scleral Icterus Ears/Nose/Mouth/Throat: Mucous Membranes Moist Neck: Trachea Midline Respiratory: Symmetrical Chest Expansion and Respiratory Effort, Clear to Auscultation Cardiovascular: NL Sounds; No Murmurs; No JVD, No Edema Abdominal: NL Sounds; No Tenderness; No Distention Lymphatic: No Cervical Adenopathy Extremities: No Edema Skin: No Rash or Ulcers Neurological: Alert and Oriented x 3, NL Muscle Strength and Tone Result Diagrams: 10/08/16 05:30 10/11/16 09:25 Additional Lab and Data: . Microbiology and Other Data: Microbiology 10/11/16 09:15 Stool Occult Blood (GALE) - Final Stool Diagnostic Imaging: XR esophagus: no definite mass. CXR: no active cardiopulmonary disease, but multiple sclerotic lesions possibly sales representative public utilities of bony mets. MRI Brain: No evidence of metastatic lesion to the brain. Cervical CT: Diffuse osteoblastic metastatic disease. Assess/Plan/Problems-Billing Assessment: Mr. San is an 86 yo male with PMH of HTN, HLD, prior GI bleed and known diffuse metastatic prostate CA currently not undergoing treatment who presents with inability to swallow and rapid weight loss with question of myasthenia gravis. - Patient Problems (1) Prostate CA Comment: - Diagnosed ~20 years ago. Has undergone treatment for metastatic skeletal lesions but has opted to forego further treatment- records from [place] about exact treatment course available in chart. Dr. Hernandez did review these records and states that no further treatment options are available. - CT cervical spine demonstrates diffuse metastatic involvement. Bone scan and CT pelvis records from [facility] found that all of his skeletal metastasis have increased despite treatment. - Patient has opted for Hospice, plan for Hospice residence on Friday. (2) Dysphagia Comment: - Appreciate neuro consult, Dr. Nunez questions possibility of myasthenia gravis and has started empiric pyridostigmine and IVIG. MG antibodies test will not likely be resulted until 10/14 or 10/15/16. He will complete his final dose of IV IG on 10/14/16 and continue IM pyridostigmine as long as he feels it is helping his swallow and it is available as part of care at Hospice residence. - Patient feels that perhaps he is getting better but repeat barium swallow confirms that he continues to silently aspirate on all food and liquid consistencies. - Patient does not want to pursue PEG tube placement. (3) SOB (shortness of breath) Comment: - Patient intermittently SOB though not hypoxic. - Suspect related to airway obstruction with weakness and laxity of upper airway. - Continue O2 and low dose morphine SL prn. (4) Malnutrition Comment: - Severe protein calorie malnutrition. ~25% loss in body weight in ~6months. Appears clinically cachectic with severe muscle wasting and loss of SQ fat. Prealbumin 8. - Suspect related to malignancy and poor oral intake. (5) DVT prophylaxis Comment: - SQ heparin. (6) DNR (do not resuscitate) Status and Disposition: Inpatient. Plan for discharge to Hospice Residence on Friday AM.
[2016-10-12] MEDS: [UNRECOGNIZED DRUG - OTHER] IV SCH (17:50)
[2016-10-12] MEDS: IMMUNE GLOBULN IV SCH (17:50)
[2016-10-13] MEDS: PYRIDOSTIGMINE IM SCH ×4 (00:21→05:47)
[2016-10-13 04:34] VITALS: BP 119/57
[2016-10-13] MEDS: Heparin VIAL(*) 5000 UNITS/ML VIAL (FIVE THOUSAND) SUBCUT SCH ×2 (05:40→05:47)
--- NOTE | 2016-10-14 06:37 | DS ---
CC: Dr. Baxter * DISCHARGE SUMMARY: DATE OF ADMISSION: 10/06/16 DATE OF : 10/13/16, 5:30 a.m. ATTENDING PHYSICIAN: Breonna Godwin MD * (dictation provided by Treasure Ledesma NP ) CAUSE OF : Metastatic prostate cancer. SECONDARY DIAGNOSES: 1. Dysphagia. 2. Severe protein calorie malnutrition. 3. History of hypertension. 4. History of hyperlipidemia. 5. History of GI bleed with peptic ulcer disease. HOSPITAL COURSE: Mr. San was an 86-year-old male with a past medical history of prostate cancer with known bony metastatic disease who presented to the hospital on 10/06/16 with concern for trouble swallowing. Please see dictated H and P from [facility] for complete details. In brief, the patient had reported that he had progressively worsening swallow function and at the time of admission he was unable to swallow his own saliva. He felt like that problem had begun about 1 to 2 weeks prior. He had an esophageal x-ray at the time of admission that showed the following "no definite masses causing obstruction are noted in the pharynx or esophagus." He had a chest x-ray, which showed "no active cardiopulmonary disease." He had an MRI of the brain looking for possible metastasis and is read as showing "no abnormal enhancement , vasogenic edema or space occupying lesion to suggest metastatic disease to the brain." It did however show findings suggestive of osteoblastic metastatic disease to the cervical spine. Video fluoroscopic swallow study showed "laryngeal aspiration with liquids and solids most marked with thin liquids." _ osteoblastic disease noted on the MRI, he did go on for cervical spine CT which showed "diffuse sclerosis of the visualized portion of the skeleton, consistent with diffuse osteoblastic metastatic disease. It showed only moderate narrowing of the central canal at C5-C6 and C6-C7 with mild narrowing at C4-C5." Despite the osteoblastic disease noted on cervical spine CT, it was unclear why Mr. San was having such difficulty swallowing. He was seen in consultation by Dr. Mahsa Nunez, from Neurology, I refer to her note for complete details, but in brief, she questioned whether or not the patient can possibly have myasthenia gravis and recommended that treatment with pyridostigmine and IVIG be initiated. This was done and he had a repeat swallow eval on 10/10/16, which again showed that he was persistently and silently aspirating on all consistencies of food and liquid. The patient continued to report that he felt that his swallow was better subjectively and therefore treatment for myasthenia gravis was continued. Mr. San was seen in consultation by Dr. Hernandez from Oncology. Initially there was consideration of possibility of treatment for his metastatic prostate cancer , however, on review of the records from the [facility] where patient had previously received treatment, it was clear that he had received numerous medication regimen and in spite of this he had progression and extension of his metastatic disease and that no further treatment options were available. Plans were underway for Mr. San to be discharged to hospice residence on Friday10/14/16, however, on 10/13/16 about 5:30 a.m. the patient was found to have no pulse and no respirations and was pronounced . The patient 's family were updated and arrangements are underway. Approximately 30 minutes was spent in the discharge of this patient. TREASURE LEDESMA NP [id number]/[facility] #: [id number] [facility]
== END 2016-10-13 05:30 | disposition expired | DRG 722 ==
LOC: ED 11:03 → MED 14:35
PROVIDERS: ADMIT Internal Medicine; ATTEND Internal Medicine
DX: C61 Malignant neoplasm of prostate (principal); E43 Unspecified severe protein-calorie malnutrition; C78.7 Secondary malignant neoplasm of liver and intrahepatic bile duct; R13.10 Dysphagia, unspecified; C79.51 Secondary malignant neoplasm of bone; Z51.5 Encounter for palliative care; Z66 Do not resuscitate; I10 Essential (primary) hypertension; E78.5 Hyperlipidemia, unspecified; R06.02 Shortness of breath; D50.9 Iron deficiency anemia, unspecified; K21.9 Gastro-esophageal reflux disease without esophagitis; Z90.79 Acquired absence of other genital organ(s); Z87.11 Personal history of peptic ulcer disease; Z80.42 Family history of malignant neoplasm of prostate
CPT/HCPCS: 36415; 70553; 71020; 72126; 74220; 74230; 80048; 80053; 82272; 83519; 83520; 84134; 84443; 85025; 86850; 86900; 86901; 94150; 94760; 99232; A9270-GY; A9579; J1568; J1644; J2270; Q9967